=== PATIENT | female | born 1940 | race Caucasian/White ===

== ENCOUNTER 2018-01-08 15:55 | Emergency (ER) | payer MEDICARE, OTHER, SELFPAY ==
[2018-01-08 16:08] VITALS: BP 189/85; PULSE 72; RESP 18; TEMP 36.1; O2SAT 100; BMI 35.9
--- NOTE | 2018-01-08 16:58 | ED.EYEPROB ---
HPI - Eye Problem General Chief complaint: Eye Problems Stated complaint: SOMETHING WRONG WITH LEFT EYE SENT BY DOCTOR Time Seen by Provider: 01/08/18 16:35 Source: patient Mode of arrival: ambulatory Limitations: no limitations History of Present Illness HPI Narrative: Patient is a 77-year-old female presents with vision difficulties. She said last evening she started noticing some purple globs in her vision. She denies any blackening of vision or loss of vision. Someone was over at her house taking pictures she was not sure if there were her, while she could not see them and they are obviously were hooks. She was sent here for possible retinal detachment. She denies hay low around all any lights she denies double vision. chief complaint: vision change Related Data Home Medications Medication Instructions Recorded Confirmed CHOLECALCIFEROL (VITAMIN D3) 1,000 iu PO QDAY #0 01/21/10 (Vitamin D3) [CALCIUM CITRATE] PO BID #0 01/21/10 Allergies Allergy/AdvReac Type Severity Reaction Status Date / Time Diphenhydramine Allergy Unknown Uncoded 08/18/17 13:11 Penicillin Allergy Unknown Uncoded 08/18/17 13:11 SULFA (sulfonamide) Allergy Unknown Uncoded 08/18/17 13:11 Morphine AdvReac Unknown Uncoded 08/18/17 13:11 Review of Systems Review of Systems GENERAL: Denies chills,fever HEENT: See HPI RESPIRATORY: Denies dyspnea, cough, wheezing CARDIOVASCULAR: Denies chest pain, palpitations GASTROINTESTINAL: Denies nausea, vomiting MUSCULOSKELETAL: Denies extremity pain, injury SKIN: No rash, no laceration, no pruritus NEUROLOGIC: Denies weakness, dizziness, headache, numbness 8 point review of systems is negative except for those stated above and HPI PFSH Medical History Healthy adult (Acute) Social History Smoking Status: Former smoker Exam Initial Vital Signs Initial Vital Signs: Vital Signs Temperature 97.0 F L 01/08/18 16:08 Pulse Rate 72 01/08/18 16:08 Respiratory Rate 18 01/08/18 16:08 Blood Pressure 189/85 H 01/08/18 16:08 Pulse Oximetry 100 01/08/18 16:08 GENERAL: Well-appearing, well-nourished and in no acute distress. CARDIOVASCULAR: peripheral pulses in tact, cap refill <2 sec RESPIRATORY: No respiratory distress, speaks in full sentences without difficulty EXTREMITIES: Normal range of motion, no clubbing or edema. Neurovascularly intact NEUROLOGICAL: Cranial nerves II through XII grossly intact. Normal gait and speech. SKIN: Warm, dry, no petechiae, no rashes or lesions. Eyes General: appearance normal, both eyes and all related structures Visual Schaffer: normal visual schaffer by confrontation Alignment and Position: alignment normal Periorbital: periorbital findings normal Eyelids: eyelids normal Conjunctivae: conjunctivae normal Sclera: sclerae normal Cornea: corneas normal Pupils: PERRL EOM: EOM intact bilaterally Direct ophthalmoscopy: normal light reflex Other: Bedside ultrasound does not show any vitreous detachment or retinal detachment. Pressure in the right eye 26 mg of mercury, pressure in left eye 23 mg of Hg Course Vital Signs - 8 hr 01/08/18 16:08 Temperature 97.0 F L Pulse Rate 72 Respiratory Rate 18 Blood Pressure 189/85 H Pulse Oximetry 100 Discharge Plan Departure Patient Disposition: Home Clinical Impression: Vitreous floaters of right eye Discharge Date/Time: 01/08/18 17:29 Interventions: ED Discharge Assessment Last Done: 01/08/18 17:29 Instructions: DI for Eye Floaters Activity Restrictions/Additional Instructions: *You have been diagnosed with right eye floater *What to do: You still need an official Ophthalmology evaluation. However the emergency department does not find any acute retinal detachment. *Continue to take medications as directed *Follow up with your primary care provider in 2-3 days, call Ophthalmology Wednesday to schedule an appointment for next week *Return to ER if you should have decreasing vision, blackening of vision or any new, worsening or concerning symptoms Prescriptions: No Action CHOLECALCIFEROL (VITAMIN D3) (Vitamin D3) 1,000 iu PO QDAY Qty: 0 RF: 0 [CALCIUM CITRATE] PO BID Qty: 0 RF: 0 Referrals: Refugio Ruth MD [Physician] - Oscar Julian MD [Primary Care Provider] -
== END 2018-01-08 17:29 | disposition home or self-care (01) ==
PROVIDERS: Emergency Provider Emergency Medicine; PCP Family Medicine
DX: H43.391 Other vitreous opacities, right eye (principal)
CPT/HCPCS: 99282; 99283

== ENCOUNTER 2018-01-17 09:52 | Emergency (ER) | payer MEDICARE, OTHER, SELFPAY ==
[2018-01-17 10:08] VITALS: BP 178/92; PULSE 70; RESP 14; TEMP 36.6; O2SAT 98
--- NOTE | 2018-01-17 10:19 | ED_ITS ---
HPI - Eye Problem General Chief complaint: Eye Problems Stated complaint: states trouble seeing from right eye Time Seen by Provider: 01/17/18 10:10 Source: patient Mode of arrival: ambulatory Limitations: no limitations History of Present Illness HPI Narrative: Patient is a 77-year-old female who was sent here from the MRI clinic. Report was the patient was seen here in the emergency department several weeks ago for decreased vision right eye. She was seen by Ophthalmology last Wednesday. An order was placed for a MRI with and without contrast and also carotid Dopplers and labs. The patient arrived today to the MRI clinic to have her MRI taken and they told her that they did not have any appointments in the next appointment was on Wednesday. She states she was told to come to the emergency department by the debug technician so that ?we could handle it ?. Patient states that her right eye symptoms are no different than which she had on Wednesday. Related Data Home Medications Medication Instructions Recorded Confirmed [CALCIUM CITRATE] 1 tab PO DAILY #0 01/21/10 01/17/18 Fish Oil 1 cap PO BID 01/17/18 01/17/18 Vitamin C 1 tab PO DAILY 01/17/18 01/17/18 aspirin 81 mg PO DAILY 01/17/18 01/17/18 simvastatin 1 tab PO DAILY 01/17/18 01/17/18 Allergies Allergy/AdvReac Type Severity Reaction Status Date / Time Diphenhydramine Allergy Unknown Uncoded 08/18/17 13:11 Penicillin Allergy Unknown Uncoded 08/18/17 13:11 SULFA (sulfonamide) Allergy Unknown Uncoded 08/18/17 13:11 Morphine AdvReac Unknown Uncoded 08/18/17 13:11 Review of Systems Constitutional Denies fever(s) Eyes Comments: Decreased vision right eye Integumentary/Breasts Denies rash Hematologic/Lymphatic Denies easy bleeding [facility] Medical History Multiple sclerosis (Acute) Healthy adult (Acute) Surgical History No pertinent past surgical history (Acute) Social History Smoking Status: Former smoker Exam Initial Vital Signs Initial Vital Signs: Vital Signs Temperature 98 F 01/17/18 10:08 Pulse Rate 70 01/17/18 10:08 Respiratory Rate 14 01/17/18 10:08 Blood Pressure 178/92 H 01/17/18 10:08 Pulse Oximetry 98 01/17/18 10:08 Const General: cooperative, healthy appearing, comfortable and well developed Resp Effort & Inspection: normal respiratory effort Skin Lesions: no lesions Rashes: no rashes Neuro General: alert, awake and oriented x3 Cognition: normal cognition Speech: speech normal Gait: normal gait Extrem General: normal to inspection Psych Appearance: grossly normal and well kempt Course Orders Ordered: ED Orders 01/17/18 11:20 BUN Creatinine w/ eGFR & Ratio Stat Hemoglobin A1C % Stat Vital Signs - 8 hr 01/17/18 10:08 Temperature 98 F Pulse Rate 70 Respiratory Rate 14 Blood Pressure 178/92 H Pulse Oximetry 98 MDM - Eye Problem Lab Data Result diagrams: 01/17/18 11:20 Lab Results 01/17/18 01/17/18 Range/Units 11:20 11:20 BUN 25 H (7-17) mg/dL Creatinine 1.10 H (0.52-1.04) mg/dL Estimated GFR 48.0 L (>60) mL/min BUN/Creatinine Ratio 22.7 H (6-22) Hemoglobin A1c 6.3 H (4.0-6.0) % MDM Narrative Medical decision making narrative: No labs were ordered for her here in the emergency department. She states she has no change from her vision from last Wednesday. She does have the paperwork with her showing that a MRI with her without contrast and also carotid Dopplers were ordered. I discussed the case with Dr. Ruth with Ophthalmology who was not the 1 who evaluated the patient but stated that his your operative provider would be in the Ophthalmology Clinic at 1230 today. Informed the patient that she needed to follow up with the Ophthalmology Clinic at 1230 and if that provider felt that she needed an MRI sooner than Wednesday that he could arrange for this to happen. Patient expressed understanding and agreement with plan. Discharge Plan Departure Patient Disposition: Home Clinical Impression: Change in vision Discharge Date/Time: 01/17/18 11:13 Interventions: ED Discharge Assessment Last Done: 01/17/18 11:11 Instructions: DI for Visual Field Disturbances Activity Restrictions/Additional Instructions: Return to the ophthalmology department here at [facility] at 1230 today to talk with your enterprise resource planning consultant about the scheduling of the MRI and the ultrasound. Go to the laboratory after being discharged from the emergency department to get your blood drawn. Return to the emergency department for any new symptoms. Prescriptions: No Action [CALCIUM CITRATE] 1 tab PO DAILY Qty: 0 RF: 0 aspirin 81 mg Tablet,Delayed Release (Dr/Ec) 81 mg PO DAILY RF: 0 simvastatin 40 mg Tablet 1 tab PO DAILY RF: 0 Fish Oil 1 cap PO BID RF: 0 Vitamin C 1 tab PO DAILY RF: 0
[2018-01-17 11:11] VITALS: BP 168/90; PULSE 78; RESP 14; O2SAT 99
[2018-01-17 13:33] LABS: BUN Creatinine Ratio 22.7 (6-22); Blood Urea Nitrogen 25 mg/dL (7-17)
[2018-01-17 13:38] LABS: Hemoglobin A1C% w Est Avg Glu 6.3 % (4.0-6.0)
== END 2018-01-17 11:13 | disposition home or self-care (01) ==
PROVIDERS: Emergency Provider Emergency Medicine; Family Provider Family Medicine; PCP Family Medicine
DX: H53.9 Unspecified visual disturbance (principal)
CPT/HCPCS: 36415; 70543; 82565; 83036; 84520; 85025; 85651; 86140; 99281; 99283; 99285; A9579

== ENCOUNTER → 2018-01-17 11:13 | Outpatient (CLI) | payer MEDICARE, OTHER, SELFPAY ==
[2018-01-17 11:51] LABS: Add Manual Diff / Slide Review NO; Basophils Percent Auto 1.2 % (0-2); Eosinophils Percent Auto 3.4 % (2-4); Hematocrit 40.9 % (36-46); Lymphocytes Percent Auto 24.9 % (25-40); Mean Corpuscular HGB Conc 34.2 % (30-36); Mean Corpuscular Hemoglobin 30.5 PG (26-34); Mean Corpuscular Volume 89.2 fL (80-100); Neutrophils Absolute Auto 3900 /uL (3000-5900); Neutrophils Percent Auto 61.5 % (50-75); Platelet Count 211 X10^3/uL (150-400); Red Blood Cell Count 4.58 X10^6/uL (4.0-5.2); Red Cell Distribution Width 12.9 % (11.6-14.8); White Blood Cell Count 6.3 X10^3/uL (4.5-11.0)
[2018-01-17 12:23] LABS: Erythrocyte Sedimentation Rate 21 MM/HR (0-20)
[2018-01-17 12:24] LABS: C-Reactive Protein Quant < 0.5 mg/dL (<1.0)
== END ==
PROVIDERS: PCP Family Medicine; Visit Provider Ophthalmology
DX: H34.211 Partial retinal artery occlusion, right eye (principal)
CPT/HCPCS: 36415; 85025; 85651; 86140

== ENCOUNTER → 2018-01-17 13:04 | Outpatient (CLI) | payer MEDICARE, OTHER, SELFPAY | PROVIDERS: Family Provider Family Medicine; PCP Family Medicine; Visit Provider Ophthalmology | DX: G35 Multiple sclerosis (principal) ==

== ENCOUNTER → 2018-01-17 13:13 | Outpatient (CLI) | payer MEDICARE, OTHER, SELFPAY ==
--- NOTE | 2018-01-17 | DI.MRI.S_ITS ---
PROCEDURE: MR ORBITS FACE NECK WO/W CON INDICATIONS: MULTIPLE SCLEROSIS TECHNIQUE: Noncontrast sagittal T1 spin echo, axial FLAIR, axial gradient echo, axial diffusion and ADC acquired through the brain. Coronal STIR, thin-slice axial T1 spin echo through the orbits. After the administration of contrast, thin-slice axial and coronal T1 spin echo with fat saturation through the orbits, axial T1 spin echo with fat saturation through the brain. COMPARISON: None. FINDINGS: Image quality: Excellent. Orbits: Globes are symmetrical. The optic nerves are normal in size, without abnormal signal or enhancement. No retrobulbar masses or fat abnormalities. The extra-ocular muscles are normal and symmetric in appearance. Lacrimal glands are normal. Optic chiasm is normal. Periorbital soft tissues appear normal. CSF spaces: Ventricles are normal in size and shape. Basal cisterns are patent. No extra-axial fluid collections. Brain: No intracranial bleeds or mass effects. No abnormal intracranial enhancement. Rivas-white matter interface is intact. Pituitary gland appears normal, without sellar or suprasellar masses. Brainstem appears normal. Normal intravascular flow voids are present. On one image, there is a focus of increased diffusion weighted signal seen within the superior left frontal lobe posteriorly, as on series 7 image 64. On the associated ADC maps, there is potentially decreased signal seen at this same site. No associated flow signal or enhancement can be seen. Skull and face: Calvarial marrow is normal in signal. Sinuses: Sinuses and mastoids are clear. IMPRESSION: No significant white matter lesions are seen characteristic for multiple sclerosis. Normal appearing orbits. Note is made of age-appropriate brain parenchymal volume loss and chronic small vessel ischemic changes. On one image there is a focus of potential acute ischemia within the superior posterior left frontal lobe. However, this is felt more likely to be artifactual in nature. Please correlate with patient history. Dictated by: Ivan Issa M.D. on 01/17/2018 at 14:50 Approved by: Ivan Issa M.D. on 01/17/2018 at 14:56
== END ==
PROVIDERS: Family Provider Family Medicine; PCP Family Medicine; Visit Provider Ophthalmology
DX: G35 Multiple sclerosis (principal); H34.211 Partial retinal artery occlusion, right eye; H53.131 Sudden visual loss, right eye
CPT/HCPCS: 70543; A9579

== ENCOUNTER → 2018-01-27 13:45 | Outpatient (CLI) | payer MEDICARE, OTHER, SELFPAY ==
--- NOTE | 2018-01-27 | DI.US.S_ITS ---
PROCEDURE: US CAROTID DOPPLER BI INDICATIONS: Partial retinal artery occlusion, right eye TECHNIQUE: Color and pulse Doppler interrogation was performed of both carotid systems, with image documentation and velocity measurements. COMPARISON: None. FINDINGS: Stenosis calculations are based on SRU (Society of Radiologists in Ultrasound) criteria. Right side: Brachial blood pressure: 149/91 mm Hg. Common carotid artery peak systolic velocity: 96 cm/sec. Internal carotid artery peak systolic velocity: 99 cm/sec. Internal carotid artery end diastolic velocity: 16 cm/sec. External carotid artery peak systolic velocity: 89 cm/sec. ICA/CCA peak systolic ratio: 1.04 . Rivas scale imaging description: Mild plaque at the bifurcation. Percent internal carotid artery stenosis: Less than 50%. Vertebral artery: Flow direction is antegrade. Left side: Brachial blood pressure: 162/73 mm Hg. Common carotid artery peak systolic velocity: 97 cm/sec. Internal carotid artery peak systolic velocity: 109 cm/sec. Internal carotid artery end diastolic velocity: 30 cm/sec. External carotid artery peak systolic velocity: 188 cm/sec. ICA/CCA peak systolic ratio: 1.12. Rivas scale imaging description: Mild to moderate plaque at the bifurcation Percent internal carotid artery stenosis: Less than 50%. Vertebral artery: Flow direction is antegrade. IMPRESSION: Less than 50% stenosis of the internal carotid arteries bilaterally. Dictated by: Mary Robison M.D. on 01/27/2018 at 17:03 Approved by: Mary Robison M.D. on 01/27/2018 at 17:04
== END ==
PROVIDERS: Family Provider Family Medicine; PCP Family Medicine; Visit Provider Ophthalmology
DX: H34.211 Partial retinal artery occlusion, right eye (principal); I65.23 Occlusion and stenosis of bilateral carotid arteries
CPT/HCPCS: 93880

== ENCOUNTER → 2018-02-21 10:48 | Outpatient (CLI) | payer MEDICARE, OTHER, SELFPAY ==
--- NOTE | 2018-02-21 | DI.ECHO.S_ITS ---
[place] +---------+ [facility] +---------+ : : [address] : : : : [id number] : : : : Phone: [phone] Echocardiogram Report + + :Name: SHERRI IBARRA Study Date: 02/21/2018 Height: 63 in : :[facility] Exam Location: [facility] Weight: 198 lb : : Gender: Female BSA: 1.9 m2 : :: 1940 Age: 78 yrs BP: 182/80 mmHg: :Reason For Study: RETINAL ARTERY OCCLUSION : : Performed By: Tosin Tsai : :Referring: LIDIA WRIGHT : + + Interpretation Summary Normal sinus rhythm. Normal LV size, proximal septal thickening, normal wall motion and left ventricular systolic function. Ejection fraction is estimated at 75-80 percent. stage I diastolic dysfunction. Aortic valve is sclerotic. Aortic valve leaflets are not well-seen. Based on color flow Doppler, there is no significant aortic stenosis. There is some concern for mild mid left ventricular outflow tract obstruction with peak gradient of 32 mm Hg with Valsalva maneuver and 19 mmHg at rest . It does not appear to be hemodynamically significant. Mitral valve leaflets are normal. There is moderate mitral annular calcification without associated significant regurgitation or stenosis. No prior study available for comparison. Procedure: A two-dimensional transthoracic echocardiogram with color flow and Doppler was performed. The study quality was technically adequate. There is no prior echocardiogram noted for this patient. The patient was in normal sinus rhythm during the exam. Left Ventricle: There is mild proximal septal thickening noted. The left ventricle is normal in size. Mid LV gradient measuring 2.2m/sec and 19mmHg at rest and increasing to 2.8m/sec and 32 mmHg with valsalva. The left ventricle is hyperdynamic. The ejection fraction is estimated to be 75-80%. There are no focal wall motion abnormalities. Diastolic parameters suggest a relaxation abnormality of the left ventricle, consistent with probable normal filling pressures. Right Ventricle: The right ventricle is normal in size and function. Atria: The left atrium is mildly dilated. Right atrial size is normal. There is no Doppler evidence for an interatrial shunt. Mitral Valve: The mitral valve leaflets appear mildly thickened, but open well. There is mild mitral annular calcification. There is trace mitral regurgitation. Aortic Valve: The aortic valve is trileaflet. There is mild aortic valve sclerosis. No aortic regurgitation is present. Tricuspid Valve: The tricuspid valve is normal. There is trace tricuspid regurgitation. The right ventricular systolic pressure is estimated to be at least 28 mmHg based on an estimated right atrial pressure of 3 mm Hg. Pulmonic Valve: The pulmonic valve is not well visualized. There is a trace or physiologic amount of pulmonic regurgitation. Great Vessels: The aortic root is normal size. The ascending aorta is normal in size. The aortic arch is normal in size. The pulmonary is not well visualized. The IVC is of normal diameter and collapses greater than 50% with a sniff. This suggests a low right atrial pressure of 3 mm Hg. Pericardium/ Pleura There is no pericardial effusion. There is no pleural effusion. MMode/2D Measurements & Calculations LVIDd: 4.1 cm LVOT diam: 2.2 cm LVIDs: 2.2 cm Ao root diam: 3.6 cm FS: 47.3 % asc Aorta Diam: 3.1 cm EPSS: 0.68 cm Ao Arch Diam (Prox Trans): 2.9 cm IVSd: 1.1 cm LVPWd: 0.86 cm LV owen. diameter/BSA (cm/m^2): 2.1 LV sys. diameter/BSA (cm/m^2): 1.1 LA A2 area: 26.8 cm2 RA long axis: 4.9 cm LA A4 area: 21.3 cm2 RA area: 16.2 cm2 LA length (vol): 6.2 cm RA vol: 45.4 ml LA vol: 77.7 ml RA : 23.6 ml/m2 LA vol index: 40.3 ml/m2 IVC diam: 0.97 cm RVD1 (basal): 3.7 cm RVD2 (mid): 2.4 cm TAPSE: 2.3 cm Doppler Measurements & Calculations Ao V2 max: 197.6 cm/sec LVOT Max Oswaldo: 111.9 cm/sec Ao V2 mean: 135.6 cm/sec LV V1 max P.0 mmHg Ao max P.6 mmHg LV V1 VTI: 25.2 cm Ao mean P.6 mmHg MADINA(I,D): 2.8 cm2 Ao V2 VTI: 36.1 cm MADINA(V,D): 2.2 cm2 sev ratio: 0.70 MADINA indexed to BSA (cm^2/m^2): 1.4 MV E max oswaldo: 70.2 cm/sec TR max oswaldo: 247.9 cm/sec MV A max oswaldo: 135.1 cm/sec TR max P.6 mmHg MV E/A: 0.52 PA V2 max: 98.7 cm/sec Med Peak E' Oswaldo: 4.8 cm/sec PA V2 mean: 62.7 cm/sec E/E' med: 14.5 PA mean P.9 mmHg Lat Peak E' Oswaldo: 6.4 cm/sec PA pr(Accel): 60.7 mmHg E/E' lat: 10.9 E/e' average: 12.7 MV dec time: 0.31 sec MV P1/2t: 91.4 msec MVA(VTI): 3.1 cm2 MV V2 mean: 68.3 cm/sec MV P1/2t max oswaldo: 71.0 cm/sec MV mean P.1 mmHg MVA(P1/2t): 2.4 cm2 MV V2 VTI: 32.6 cm Reading Physician:07:11 PM
== END ==
PROVIDERS: PCP Family Medicine; Visit Provider Ophthalmology
DX: I35.8 Other nonrheumatic aortic valve disorders (principal); H34.9 Unspecified retinal vascular occlusion
CPT/HCPCS: 93306

== ENCOUNTER 2018-06-16 10:31 | Day surgery (SDC) | payer MEDICARE, OTHER, SELFPAY ==
[2018-06-16] MEDS: PROPARACAINE 0.5% OPHTH SOL 2 DROPS EYE-OP (11:01)
[2018-06-16] MEDS: CATARACT EYE COMPOUND (10 DROPS/SYRINGE) 3 DROPS EYE-OP (11:06)
[2018-06-16 11:07] VITALS: BMI 34.0
[2018-06-16 11:21] VITALS: BP 144/68; PULSE 71; RESP 12; TEMP 36.6; O2SAT 93
[2018-06-16 11:22] VITALS: O2SAT 97
--- NOTE | 2018-06-16 12:17 | PM.PREOP ---
Pre-operative Note Interval Note History & Physical reviewed/Exam performed by Physician: Yes Changes to H&P: No
[2018-06-16] MEDS: LIDOCAINE JELLY 2% 5 ML 1 APPLIC TOP (12:47)
[2018-06-16] MEDS: MOXIFLOXACIN OPHTH DROPS 3 ML BOTTLE 2 DROPS INJ (12:47)
[2018-06-16] MEDS: CHONDROIDTIN/SOD HYALURONATE 1.05 ML SYRINGE INTRAOCULA ×2 (12:47→13:00)
[2018-06-16] MEDS: PHENYLEPHRINE/LIDOCAINE VIAL (OR) 0.2 ML EYE-OP (12:47)
[2018-06-16] MEDS: BALANCED SALT IRRIG SOLN NO.2 500 ML, EPINEPHrine 1 MG IRR (12:48)
--- NOTE | 2018-06-16 14:34 | PM.OP.1 ---
Procedure & Clinicians Procedure: cataract surgery with intraocular lens implant, right Same procedure as scheduled: Yes Indications: Visually significant nuclear sclerosis cataract, right Surgeon: Roldan Stewart Click Yes if Unassisted: Yes Anesthesia Type: MAC +/- Operative Notes Procedure in detail: The patient was brought to the operating suite. The correct patient, surgical site and lens were confirmed. 0.5 % tetracaine drops were placed in the right eye. The patient was prepped and draped in the typical sterile manner. A lid speculum was placed in the eye. 2% lidocaine was placed on the eye. A paracentesis port was created with a side-port blade at 5 o'clock. 0.1 mL of 1% preservative free lidocaine with phenylephrine was injected into the anterior chamber. Viscoelastic was injected into the anterior chamber. A 2.6mm keratome was used to create a clear corneal temporal incision. Cystotome and Utrata forceps were used to start a continuous curvilinear capsulorrhexis. At the 9 o'clock position the capsulorrhexis ran out. At this point the iris was noted to be protruding through the main incision. A 6.25mm Malyugin ring was placed. This was found to be too small and was removed. Than a 7 mm Malyugin ring was placed. A can patient support assistant technique was used to complete the capsulorrhexis. Balanced salt solution was used to gently hydrodissect the nucleus. Phacoemulsification was used to remove the lens. Inspiration/Aspiration was used to gently remove residual cortical material and to german the bag. The posterior capsular bag was noted to be intact. The capsular bag was inflated with viscoelastic. Given the large capsulorrhexis an Gomez +24.0D lens was placed in the bag and positioned well. The malyugin ring was removed and viscoelastic was removed. The iris was again found to be protruding from the wound. Three 10-0 sutures were placed at the wound and one 10-0 suture at the paracentesis port. All these knots were burried. A second paracentesis port was created at 1 o'clock. A BSS cannula was used to sweep the iris out of the wound. The wounds were found to be leak free and the eye was at physiologic pressure. 0.1mL Vigamox was injected into the anterior chamber. The lid speculum was removed and the patient left the operating room in excellent condition. Complications: none Condition: stable Disposition: same day surgery
[2018-06-16 14:41] VITALS: BP 162/68; PULSE 68; RESP 16; TEMP 36.3; O2SAT 99
--- NOTE | 2018-06-16 14:44 | P.OP_ITS ---
Procedure & Clinicians Procedure: cataract surgery with intraocular lens implant, right Same procedure as scheduled: Yes Indications: Visually significant nuclear sclerosis cataract, right Surgeon: Roldan Stewart Click Yes if Unassisted: Yes Anesthesia Type: MAC +/- Operative Notes Procedure in detail: The patient was brought to the operating suite. The correct patient, surgical site and lens were confirmed. 0.5 % tetracaine drops were placed in the right eye. The patient was prepped and draped in the typical sterile manner. A lid speculum was placed in the eye. 2% lidocaine was placed on the eye. A paracentesis port was created with a side-port blade at 5 o'clock. 0.1 mL of 1% preservative free lidocaine with phenylephrine was injected into the anterior chamber. Viscoelastic was injected into the anterior chamber. A 2.6mm keratome was used to create a clear corneal temporal incision. Cystotome and Utrata forceps were used to start a continuous curvilinear capsulorrhexis. At the 9 o'clock position the capsulorrhexis ran out. At this point the iris was noted to be protruding through the main incision. A 6.25mm Malyugin ring was placed. This was found to be too small and was removed. Than a 7 mm Malyugin ring was placed. A can drag out worker technique was used to complete the capsulorrhexis. Balanced salt solution was used to gently hydrodissect the nucleus. Phacoemulsification was used to remove the lens. Inspiration/Aspiration was used to gently remove residual cortical material and to tamazight the bag. The posterior capsular bag was noted to be intact. The capsular bag was inflated with viscoelastic. Given the large capsulorrhexis an Gomez +24.0D lens was placed in the bag and positioned well. The malyugin ring was removed and viscoelastic was removed. The iris was again found to be protruding from the wound. Three 10-0 sutures were placed at the wound and one 10-0 suture at the paracentesis port. All these knots were burried. A second paracentesis port was created at 1 o'clock. A BSS cannula was used to sweep the iris out of the wound. The wounds were found to be leak free and the eye was at physiologic pressure. 0.1mL Vigamox was injected into the anterior chamber. The lid speculum was removed and the patient left the operating room in excellent condition. Complications: none Condition: stable Disposition: same day surgery
== END 2018-06-16 14:46 ==
LOC: OR 10:31
PROVIDERS: PCP Family Medicine; Visit Provider Ophthalmology
PROC: (CPT 66982; principal; 2018-06-16 11:30)
DX: H25.11 Age-related nuclear cataract, right eye (principal)
CPT/HCPCS: 66982; J0171; J2250; J3010

== ENCOUNTER 2018-06-23 14:15 | Day surgery (SDC) | payer MEDICARE, OTHER, SELFPAY ==
[2018-06-23] VITALS (7 sets, daily range): BP systolic 146–179; BP diastolic 55–77; PULSE 60–68; RESP 10–16; TEMP 36.2–36.3; O2SAT 96–99; BMI 35.4
[2018-06-23] MEDS: PROPARACAINE 0.5% OPHTH SOL 2 DROPS EYE-OP ×2 (16:00→16:01)
[2018-06-23] MEDS: CATARACT EYE COMPOUND (10 DROPS/SYRINGE) 3 DROPS EYE-OP (16:02)
--- NOTE | 2018-06-23 16:33 | PM.PREOP ---
Pre-operative Note Interval Note History & Physical reviewed/Exam performed by Physician: Yes Changes to H&P: No
[2018-06-23] MEDS: PHENYLEPHRINE/LIDOCAINE VIAL (OR) 0.2 ML EYE-OP ×2 (17:15→17:22)
[2018-06-23] MEDS: MOXIFLOXACIN OPHTH DROPS 3 ML BOTTLE 2 DROPS INJ ×2 (17:15→17:22)
[2018-06-23] MEDS: CHONDROIDTIN/SOD HYALURONATE 1.05 ML SYRINGE INTRAOCULA ×2 (17:16→17:17)
[2018-06-23] MEDS: TETRACAINE 0.5% OPHTH DROPS 4 ML 2 DROPS EYE-RIGHT (17:18)
[2018-06-23] MEDS: BALANCED SALT IRRIG SOLN NO.2 500 ML, EPINEPHrine 1 MG IRR ×2 (17:18→17:23)
[2018-06-23] MEDS: ACETYLCHOLINE 1:1000 OPHTH 2 ML 1 DROP INTRAOCULA (17:19)
[2018-06-23] MEDS: CARBACHOL 1.5 ML VIAL INJ (17:55)
[2018-06-23] MEDS: TRIAMCINOLONE 50 MG/5 ML VIAL INJ (18:25)
[2018-06-23] MEDS: ERYTHROMYCIN OPHTH 1 GM OINT 1 APPLIC EYE-RIGHT (18:37)
--- NOTE | 2018-06-23 18:45 | PM.OP.1 ---
Procedure & Clinicians Procedure: Lens exchange, wound revision, right Same procedure as scheduled: Yes Indications: Dislocated lens, iris in wound, right Surgeon: Roldan Stewart Click Yes if Unassisted: Yes Anesthesia Type: General Operative Notes Procedure in detail: The patient was brought to the operating suite. The correct patient, surgical site and lens were confirmed. 0.5 % tetracaine drops were placed in the right eye. The patient was prepped and draped in the typical sterile manner. A lid speculum was placed in the eye. 2% lidocaine was placed on the eye. A paracentesis port was created with a side-port blade at 2 o'clock. 0.1 mL of 1% preservative free lidocaine with pheynylephrine was injected into the anterior chamber. Viscoelastic was injected into the anterior chamber. A 2.6mm keratome was used to create a clear corneal incision at 12 o'clock. The eye was inspected and there was found to be a rent at 3 o'clock with a posterior capsule extension. The existing lens was rotated out of the bag into the anterior chamber. The lens was cut into three pieces and removed with MST graspers and lens cutters. All three pieces were removed from the eye. A Gomez [id number] +22.5 D lens was placed in the sulcus with the haptics oriented at 6 and 12 o'clock. Myostat at Miochiol-E were placed in the anterior chamber. The lens appeared stable. The iris was swept from the main wound at 9 o'clock. Irrigation/aspiration were used to remove Viscoelastic. A vitrectomy was used to sweep the anterior chamber. The main wound at 12 o'clock was sutured with 10-0 nylon and the knot burried. 0.1mL Vigamox was injected into the anterior chamber. A small amount of vitreous was appreciated at the sideport wound. A Weck-cell vitrectomy was performed with Jules scissors. The wound and sideport incision were found to be leak free and the eye was assessed to be at normal physiologic pressure. The wound and sideport incision were inspected again with a weck-giovanna and no vitreous was appreciated. 20mg of Kenalog-40 was injected inferiorly into the subtenon space. The lid speculum was removed and the patient left the operating room in excellent condition. Complications: none Condition: stable Disposition: same day surgery
[2018-06-23] MEDS: acetaZOLAMIDE 250 MG TABLET 1000 MG PO (18:56)
--- NOTE | 2018-06-23 19:23 | SUR.PHASEII ---
Some light shivering here in OPD albeit starting after IV discontinued. Expedited dressing in street clothes to help with warmth.
== END 2018-06-23 19:43 | disposition home or self-care (01) ==
PROVIDERS: PCP Family Medicine; Visit Provider Ophthalmology
PROC: (CPT 66825; principal; 2018-06-23 15:30)
DX: T85.22XA Displacement of intraocular lens, initial encounter (principal)
CPT/HCPCS: 66825; J0171; J2704; J3010; J3300; J3301

== ENCOUNTER 2018-07-28 14:26 | Day surgery (SDC) | payer MEDICARE, OTHER, SELFPAY ==
[2018-07-28] MEDS: PROPARACAINE 0.5% OPHTH SOL 2 DROPS EYE-OP (14:52)
[2018-07-28 14:56] VITALS: BMI 35.4
[2018-07-28] MEDS: CATARACT EYE COMPOUND (10 DROPS/SYRINGE) 3 DROPS EYE-OP (15:02)
[2018-07-28 15:03] VITALS: BP 155/76; PULSE 85; RESP 12; TEMP 36.6; O2SAT 96
--- NOTE | 2018-07-28 15:07 | PM.PREOP ---
Pre-operative Note Interval Note History & Physical reviewed/Exam performed by Physician: Yes Changes to H&P: No
[2018-07-28] MEDS: PHENYLEPHRINE/LIDOCAINE VIAL (OR) 0.2 ML EYE-OP (15:34)
[2018-07-28] MEDS: CHONDROIDTIN/SOD HYALURONATE 1.05 ML SYRINGE INTRAOCULA (15:35)
[2018-07-28] MEDS: BALANCED SALT IRRIG SOLN NO.2 15 ML IRR (15:35)
[2018-07-28] MEDS: TRYPAN BLUE 0.5 ML SYRINGE INJ (15:35)
[2018-07-28] MEDS: BALANCED SALT IRRIG SOLN NO.2 500 ML, EPINEPHrine 1 MG IRR (15:36)
[2018-07-28] MEDS: TETRACAINE 0.5% OPHTH DROPS 4 ML 2 DROPS EYE-LEFT (15:36)
[2018-07-28] MEDS: MOXIFLOXACIN OPHTH DROPS 3 ML BOTTLE 2 DROPS INJ (15:37)
--- NOTE | 2018-07-28 15:55 | PM.OP.1 ---
Procedure & Clinicians Procedure: Cataract extraction with intraocular lens implant, left Same procedure as scheduled: Yes Indications: Visually significant cataract, left Surgeon: Roldan Stewart Click Yes if Unassisted: Yes Anesthesia Type: MAC +/- Operative Notes Procedure in detail: The patient was brought to the operating suite. The correct patient, surgical site and lens were confirmed. 0.5 % tetracaine drops were placed in the left eye. The patient was prepped and draped in the typical sterile manner. A lid speculum was placed in the eye. 2% lidocaine was placed on the eye. A paracentesis port was created with a side-port blade. 0.1 mL of 1% preservative free lidocaine with phenylephrine was injected into the anterior chamber. Viscoelastic was injected into the anterior chamber. A 2.6mm keratome was used to create a clear corneal temporal incision. Cystotome and Utrata forceps were used to create a continuous curvilinear capsulorrhexis. Balanced salt solution was used to hydrodissect the nucleus. Phacoemulsification was used to remove the lens. The capsular bag was inflated with viscoelastic. A Gomez ZBOO +23.5D lens was inserted into the capsule. Viscoelastic was removed and the wound hydrated. The wound was found to be leak free and the eye was assessed to be at normal physiologic pressure. 0.1mL Vigamox was injected into the anterior chamber. The lid speculum was removed and the patient left the operating room in excellent condition. Complications: none Condition: stable Disposition: same day surgery
[2018-07-28 15:58] VITALS: BP 148/65; PULSE 65; RESP 16; TEMP 36.4; O2SAT 99
== END 2018-07-28 17:00 | disposition home or self-care (01) ==
LOC: OR 14:27
PROVIDERS: PCP Family Medicine; Visit Provider Ophthalmology
DX: H26.8 Other specified cataract (principal)
CPT/HCPCS: J0171; J2250; J3010

== ENCOUNTER 2019-06-16 14:04 | Emergency (ER) | payer MEDICARE, OTHER, SELFPAY ==
[2019-06-16 14:25] VITALS: BP 129/66; PULSE 78; RESP 18; TEMP 36.8; O2SAT 97; BMI 32.7
[2019-06-16 15:10] LABS: Add Manual Diff / Slide Review NO; Basophils Absolute Auto 100 /uL (0-100); Basophils Percent Auto 0.7 % (0-2); Eosinophils Absolute Auto 200 /uL (0-450); Eosinophils Percent Auto 1.8 % (2-4); Hematocrit 40.2 % (36-46); Hemoglobin 13.9 g/dL (12.0-16.0); Lymphocytes Absolute Auto 1300 /uL (1100-4500); Lymphocytes Percent Auto 14.8 % (25-40); Mean Corpuscular HGB Conc 34.4 % (30-36); Mean Corpuscular Hemoglobin 30.7 PG (26-34); Mean Corpuscular Volume 89.1 fL (80-100); Monocytes Absolute Auto 900 /uL (0-900); Monocytes Percent Auto 9.8 % (3-14); Neutrophils Absolute Auto 6500 /uL (1500-7000); Neutrophils Percent Auto 72.9 % (50-75); Platelet Count 202 X10^3/uL (150-400); Red Blood Cell Count 4.52 X10^6/uL (4.0-5.2); Red Cell Distribution Width 13.1 % (11.6-14.8); White Blood Cell Count 8.9 X10^3/uL (4.5-11.0)
--- NOTE | 2019-06-16 15:16 | ED_ITS ---
HPI - Fall General Chief Complaint: Fall Stated Complaint: passed out in bathroom Time Seen by Provider: 06/16/19 15:03 Source: patient Mode of arrival: Wheelchair Limitations: no limitations History of Present Illness HPI Narrative: This is an 79-year-old female comes to the emergency department with complaint of passing out her bathroom. She states about 3:30 this morning she was up she had been sleeping she was up very early got hot shower she felt lightheaded set down in the shower and then felt she needed to get out so she went to go and sit on the toilet she made it to the toilet sat down and then woke up on the floor. She thinks only a few minutes past. She states there was some blood from her nose present. She did have much energy but after appear to time she was able to get, cleaned up herself, change of clothes clean the bathroom, clean heard tells but was not able to clean a small crevice between the floor and the bathtub because she had difficulty. She contacted the local medics on [facility]. They checked her out they took her to primary care doctor who sewed a laceration on her finger and her nose but they felt she needed evaluation. Patient denies any headache, she denies any neck or back pain. She denies any dizziness currently no nausea, no vomiting, no loss of bowel or bladder control. No weakness, numbness or tingling. She normally takes aspirin she stopped it on Wednesday in anticipation of having hip repair this following Wednesday. She does take simvastatin and Celebrex. She does have a difference in the size of her pupils which she states is chronic and secondary to change in 1 of her eyes. She does not know if her tetanus is up-to-date. With a assistance with medics she was brought over here for evaluation. Related Data Home Medications Medication Instructions Recorded Confirmed calcium carbonate [Calcium 500] 1,500 mg PO DAILY #0 01/21/10 07/28/18 ascorbic acid (vitamin C) [Vitamin 1,000 mg PO DAILY 01/17/18 07/28/18 C] aspirin 81 mg PO DAILY 01/17/18 07/28/18 omega 7-wub-bun-fish oil [Fish Oil] 1 tab PO BID 01/17/18 07/28/18 simvastatin 1 tab PO DAILY 01/17/18 06/16/19 cholecalciferol (vitamin D3) 1,000 unit PO DAILY 06/16/18 07/28/18 [Vitamin D3] naproxen sodium [Aleve] 440 mg PO BID PRN 06/16/18 07/28/18 celecoxib 200 mg PO DAILY 06/16/19 latanoprost 1 drp OPHTHALMIC (EYE) DAILY 06/16/19 06/16/19 Previous Rx's Medication Instructions Recorded clindamycin HCl 300 mg PO Q6H 5 Days #20 cap 06/16/19 Allergies Allergy/AdvReac Type Severity Reaction Status Date / Time Penicillins Allergy Intermediate Hives Verified 07/28/18 13:32 adhesive Allergy Unknown Rash Verified 07/28/18 13:32 Sulfa (Sulfonamide Allergy Unknown Hives Verified 07/28/18 13:32 Antibiotics) morphine AdvReac Severe Vomiting Verified 07/28/18 13:32 Review of Systems Review of Systems ROS Unobtainable: All systems reviewed & are unremarkable except as noted in HPI and below Patient History Medical History (Updated 06/16/19 @ 16:32 by Concha Randall DO) Dyslipidemia (Acute) Healthy adult (Acute) Multiple sclerosis (Acute) Surgical History No pertinent past surgical history (Acute) Social History household members: spouse Smoking Status: Former smoker Smoking Status: Former smoker alcohol intake frequency: 0-2 drinks per day Substance Use Type: does not use Exam Narrative Exam Narrative: GEN: Patient appears in mild distress. HEAD: No evidence of trauma, no raccoon/Campbell sign. NECK: Nontender, painless range of motion, trachea midline Negative Nexus criteria, there is no mid line tenderness, distracting injury, altered mental status, neuro deficit, recent EtOH. EYES: Patient have aniscoria with 6mm pupil in the right and 2 mm on the left, RRLA, EOMI ENT: Patient does have a laceration over the bridge of the nose, approximately 3.2 cm in length but has been repaired with good closure so, patient does have some ecchymosis around the area, no raccoon eyes, trachea is midline, TM's are normal no hemotypanum, Nares are clear, no septal hematoma, no dental or oral injury, airway is normal and with normal occlusion, No bony tenderness RESP: Chest is nontender and has symmetric movement, no ecchymosis, breath s ounds are normal no crackles, wheezes or rales CVS: Heart sounds are normal, no murmur noted, No JVD. ABG/GI: Nontender, soft, normal bowel sounds, no distention, no organomegaly, pelvic rock is negative NEURO: Oriented AOx3, neuro is grossly intact, sensation and motor is normal all 4 extremities moving, cranial nerves II through XII are intact, GCS is 15 PSYCH: Normal mood and affect SKIN: Patient has an abrasion on her right knee, she also has a laceration over her 4th finger on her right hand between the mid and proximal joints, patient has had this repaired incision is clean dry and intact, she does have some tenderness over the finger but does have full range of motion, warm and dry, no crepitus and without decubitus BACK: No CVA tenderness, no vertebral tenderness, no step-off's, no crepitus EXT: Atraumatic, hips are nontender, no pedal edema, normal color and temperature, normal range of motion of extremities with normal tendon exam, 2+ pulses in all four extremities Initial Vital Signs Initial Vital Signs: Vital Signs Temperature 98.2 F 06/16/19 14:25 Pulse Rate 78 06/16/19 14:25 Respiratory Rate 18 06/16/19 14:25 Blood Pressure 129/66 06/16/19 14:25 Pulse Oximetry 97 06/16/19 14:25 Scores GCS Franklin coma scale eye opening: Spontaneous Adriana coma scale verbal response: Orientated Adriana coma scale motor response: Obey commands Franklin coma scale total score: 15 Course Orders Ordered: ED Orders 06/16/19 14:38 EKG-12 Lead Stat 06/16/19 14:58 Complete Blood Count AUTO DIFF Stat Comprehensive Metabolic Panel Stat NT-proBNP (BNP-Adult 18+) Stat Troponin & CK Cardiac Panel Stat 06/16/19 15:17 CT head/brain wo con Stat XR chest 1V Stat 06/16/19 15:34 CT facial bones wo con Stat XR finger RT min 2V Stat Discontinued Medications Diphtheria/Tetanus/Acell Pertussis (Adacel) 0.5 ml IM .ONCE ONE Stop: 06/16/19 15:39 Last Admin: 06/16/19 15:59 Dose: 0.5 ml Documented by: FRANSISCA Sodium Chloride (Normal Saline 0.9%) 1,000 mls @ 1,000 mls/hr IV BOLUS ONE Stop: 06/16/19 16:15 Last Infusion: 06/16/19 17:19 Dose: 0 mls/hr Documented by: Admin: 06/16/19 15:59 Dose: 1,000 mls/hr Documented by: FRANSISCA Vital Signs Vital signs: Vital Signs - 8 hr 06/16/19 14:25 06/16/19 16:06 Temperature 98.2 F Pulse Rate 78 70 Respiratory Rate 18 19 Blood Pressure 129/66 Blood Pressure [Left Arm] 162/74 H Pulse Oximetry 97 98 MDM - Fall Lab Data Attestation: I reviewed the patient's lab results. Result diagrams: 06/16/19 14:58 06/16/19 14:58 Labs: Lab Results 06/16/19 06/16/19 06/16/19 Range/Units 14:58 14:58 14:58 WBC 8.9 (4.5-11.0) X10^3/uL RBC 4.52 (4.0-5.2) X10^6/uL Hgb 13.9 (12.0-16.0) g/dL Hct 40.2 (36-46) % MCV 89.1 (80-100) fL MCH 30.7 (26-34) PG MCHC 34.4 (30-36) % RDW 13.1 (11.6-14.8) % Plt Count 202 (150-400) X10^3/uL Neut % (Auto) 72.9 (50-75) % Lymph % (Auto) 14.8 L (25-40) % [place] % (Auto) 9.8 (3-14) % Eos % (Auto) 1.8 L (2-4) % Baso % (Auto) 0.7 (0-2) % Neut # (Auto) 6500 (8146-2973) /uL Lymph # (Auto) 1300 (6020-5138) /uL [place] # (Auto) 900 (0-900) /uL Eos # (Auto) 200 (0-450) /uL Baso # (Auto) 100 (0-100) /uL Sodium 141 (137-145) mmol/L Potassium 4.0 (3.4-5.1) mmol/L Chloride 102 (98-107) mmol/L Carbon Dioxide 28 (22-32) mmol/L BUN 36 H (7-17) mg/dL Creatinine 1.00 (0.52-1.04) mg/dL Estimated GFR 53.3 L (>60) mL/min BUN/Creatinine Ratio 36.0 H (6-22) Glucose 101 (80-110) mg/dL Calcium 10.7 H (8.4-10.2) mg/dL Total Bilirubin 0.5 (0.2-1.3) mg/dL AST 41 H (14-36) IU/L ALT 24 (<35) IU/L Alkaline Phosphatase 61 (38-126) U/L Total Creatine Kinase 161 H (30-135) U/L CK-MB (CK-2) 3.38 H (<2.37) ng/mL CK-MB (CK-2) Rel Index 2.1 (1.5-5.0) % Troponin I < 0.012 (0.01-0.034) ng/mL NT-Pro-B Natriuret Pep 262 (<450) pg/mL Total Protein 8.3 H (6.3-8.2) g/dL Albumin 4.6 (3.5-5.0) g/dL Globulin 3.7 (1.7-4.1) g/dL Albumin/Globulin Ratio 1.2 (1.0-2.8) Imaging Data CT scan - head: Radiologist's Impression: [address] [address] [address] Scan Report Signed Patient: Farrah Ricardo#: [id number] : 9Acct:[id number] Age/Sex: 79 / FDate of Service: 06/16/19 Loc: ED Accession Number: [id number] Procedure: CT head/brain wo con Ordering Provider: Concha Randall D.O. PROCEDURE: CT HEAD/BRAIN WO CON INDICATIONS: syncope TECHNIQUE: Noncontrast 4.5 mm thick angled axial sections acquired from the foramen magnum to the vertex, with coronal and sagittal reformats. For radiation dose reduction, the following was used: automated exposure control, adjustment of mA and/or kV according to patient size. COMPARISON: None. FINDINGS: Image quality: Excellent. CSF spaces: Basal cisterns are patent. No extra-axial fluid collections. The ventricles are symmetric in size and shape. Brain: No intracranial bleeds or masses. There is cerebral volume loss for age, with resultant ventricular and sulcal prominence. There are periventricular and deep white matter chronic small vessel ischemic changes. There is intracranial internal carotid artery atherosclerosis. Skull and face: Bilateral is a bone fractures. Sinuses: Visualized sinuses and mastoids are clear. IMPRESSION: Bilateral nasal bone fractures No acute intracranial process Dictated by: Wale Bolton M.D. on 06/16/2019 at 15:54 Approved by: Wale Bolton M.D. on 06/16/2019 at 15:[address]: Radiologist's Impression: [place] [address] CT Scan Report Signed Patient: Farrah Ricardo#: [id number] : 9Acct:[id number] Age/Sex: 79 / FDate of Service: 06/16/19 Loc: ED Accession Number: [id number] Procedure: CT facial bones wo con Ordering Provider: Concha Randall D.O. PROCEDURE: CT FACIAL BONES WO CON INDICATIONS: fall, nasal lac, repaired on orcas TECHNIQUE: Noncontrast 2.5 mm thick axial images acquired from the mandible through the fro ntal sinuses, with coronal and sagittal reformatting. For radiation dose reduction, the following was used: automated exposure control, adjustment of mA and/or kV according to patient size. COMPARISON: None. FINDINGS: Image quality: Excellent. Bones and teeth: Comminuted bilateral nasal bone fractures. Chronic left TMJ degeneration. Sinuses: Paranasal sinuses are aerated, without fluid levels, mucosal thickening, or mucoceles. Mastoid air cells are aerated. Soft tissues: No edema, masses, or fluid collections. No enlarged lymph nodes. No soft tissue lacerations or debris. Vascular: Visualized vascular structures appear normal in the absence of contrast. Bony vascular foramina and canals are intact. IMPRESSION: Comminuted bilateral nasal bone fractures Dictated by: Wale Bolton M.D. on 06/16/2019 at 15:56 Approved by: Wale Bolton M.D. on 06/16/2019 at 16:04 Chest x-ray: Radiologist's Impression: [address] [address] XRay Report Signed Patient: Farrah Ricardo#: [id number] : 9Acct:[id number] Age/Sex: 79 / FDate of Service: 06/16/19 Loc: ED Accession Number: [id number] Procedure: XR chest 1V Ordering Provider: Concha Randall D.O. PROCEDURE: XR CHEST 1V INDICATIONS: syncope TECHNIQUE: One view of the chest was acquired. COMPARISON: None. FINDINGS: Surgical changes and devices: None. Lungs and pleura: Low lung volumes with scattered subsegmental atelectasis/scarring. No pleural effusions or pneumothorax. Mediastinum: Mediastinal contours appear normal. Heart size is normal. Bones and chest wall: No suspicious bony lesions. Overlying soft tissues a ppear unremarkable. IMPRESSION: No acute disease Dictated by: Wale Bolton M.D. on 06/16/2019 at 16:06 Approved by: Wale Bolton M.D. on 06/16/2019 at 16:07 finger xray: Radiologist's Impression: [address] [address] XRay Report Signed Patient: Farrah Ricardo#: [id number] : 9Acct:[id number] Age/Sex: 79 / FDate of Service: 06/16/19 Loc: ED Accession Number: [id number] Procedure: XR finger RT min 2V Ordering Provider: Concha Randall D.O. PROCEDURE: XR FINGER RT MIN 2V INDICATIONS: finger pain, fall, lac, repaired already 4th finger TECHNIQUE: AP hand, 2 views of the right finger(s) acquired. COMPARISON: None. FINDINGS: Bones: No fractures or dislocations. No suspicious bony lesions. Diffuse interphalangeal joint degeneration. Ulnar minus variance incidentally noted and chronic distal radioulnar joint degeneration Soft tissues: No suspicious soft tissue calcifications. IMPRESSION: No fracture. No radiopaque foreign body identified Dictated by: Wale Bolton M.D. on 06/16/2019 at 16:04 Approved by: Wale Bolton M.D. on 06/16/2019 at 16:06 ECG Data Attestation: I personally reviewed and interpreted this ECG as follows: Prior ECG tracings: not available for review Interpretation: Sinus rhythm rate of 72 VT 167 QRS of 90 and QTC of 442. Nonspecific change. Possible depression V5 6 no elevation appreciated MDM Narrative Medical decision making narrative: Patient comes in department with a syncopal episode early this morning patient was seen approximately 10 hours after the event. Patient has nonspecific EKG change, her lab work shows elevated BUN, negative CBC, patient's GFR is 53 appears to be a baseline compared to prior renal function in 2018. Patient's calcium is at 10.7 with an AST of 41, CK-MB is 3.38 but troponins negative almost 10 hours after the event with no chest pain shortness of breath or other cardiac symptoms. BNP is a normal range., facial bones show nasal bone fracture which patient had laceration that area shows technically an open fracture. Patient was given prescription for oral antibiotics. Patient's finger x-ray is negative she also had a laceration that was repaired both laceration repairs do look good. And patient was had a little bit of oozing from the nose and a small amount of surgicell on her nose for ooze. Patient's C-spine was cleared. She was able to ambulate without issue we discussed potential causes for her syncopal episode but neurologic, cardiac or pulmonary less likely. Patient is feeling well and would like to return home she has transportation to [place] to [facility] and the medics on the other side are going to pick her up and take her home. Discharge Plan Departure Patient Disposition: Home Clinical Impression: Laceration of nose Qualifiers: Encounter type: initial encounter Qualified Code(s): S01.21XA - Laceration without foreign body of nose, initial encounter Syncope Qualifiers: Syncope type: unspecified Qualified Code(s): R55 - Syncope and collapse Laceration of finger of right hand Qualifiers: Encounter type: initial encounter Finger: ring finger Damage to nail status: without damage Foreign body presence: without foreign body Qualified Code(s): S61.214A - Laceration without foreign body of right ring finger without damage to nail, initial encounter Fracture of nasal bone Qualifiers: Encounter type: initial encounter Discharge Date/Time: 06/16/19 18:03 Instructions: DI for Nose Fracture Activity Restrictions/Additional Instructions: Follow-up with your physician in the next week for recheck. Call for an appointment. Continue home medications as prescribed. Make sure you are drinking plenty of fluids daily. I would recommend a short course of antibiotics as you technically have an open fracture for your nasal bone. Your prescription was sent to [facility] on [facility]. Wound Care: Keep wound(s) clean and dry. Wash daily with soap and water only. Do not use over the counter products (alcohol or peroxide)on the wounds unless instructed by a physician. If wound condition worsens (increased/expanding redness, developing fluid blisters, or worsening pain), either contact your doctor for an urgent re- assessment , or return to the Emergency Department. Return to the Emergency Department for any new or worsening symptoms. Return to the ED, urgent care, or vist a primary care doctor for removal or suture or judie in the next 5 days. Return if fever greater than 100.4 Fahrenheit, increased swelling, increasing pain or worsening symptoms such as increased discharge or spreading redness. Severe headaches, recurrent dizziness, lightheadedness or passing out, new chest pain or shortness of breath, persistent vomiting, new weakness numbness, new neck or back pain, signs of infection and her laceration site or other new or concerning symptoms. Prescriptions: New clindamycin HCl 300 mg capsule 300 mg PO Q6H 5 Days Qty: 20 RF: 0 No Action calcium carbonate [Calcium 500] 500 mg calcium (1,250 mg) Tablet 1,500 mg PO DAILY Qty: 0 RF: 0 ascorbic acid (vitamin C) [Vitamin C] 1,000 mg Tablet 1,000 mg PO DAILY RF: 0 aspirin 81 mg Tablet,Delayed Release (Dr/Ec) 81 mg PO DAILY RF: 0 simvastatin 40 mg Tablet 1 tab PO DAILY RF: 0 omega 6-hsh-npn-fish oil [Fish Oil] 1,000 mg (120 mg-180 mg) Capsule 1 tab PO BID RF: 0 latanoprost 0.005 % drops 1 drp ophthalmic (eye) DAILY RF: 0 celecoxib 100 mg capsule 200 mg PO DAILY RF: 0 cholecalciferol (vitamin D3) [Vitamin D3] 1,000 unit Capsule 1,000 unit PO DAILY RF: 0 naproxen sodium [Aleve] 220 mg Capsule 440 mg PO BID PRN (Reason: Pain (Scale Score 1-3)) RF: 0 Referrals: Oscar Julian MD [Primary Care Provider] -
[2019-06-16 15:30] LABS: Alanine Aminotransferase 24 IU/L (<35); Albumin 4.6 g/dL (3.5-5.0); Aspartate Aminotransferase 41 IU/L (14-36); Bilirubin Total 0.5 mg/dL (0.2-1.3); Blood Urea Nitrogen 36 mg/dL (7-17); Calcium 10.7 mg/dL (8.4-10.2); Carbon Dioxide 28 mmol/L (22-32); Chloride 102 mmol/L (98-107); Creatine Kinase 161 U/L (30-135); Estimated Glomerular Filt Rate 53.3 mL/min (>60); Glucose 101 mg/dL (80-110); HEMOLYSIS < 15 (0-50); Sodium 141 mmol/L (137-145)
--- NOTE | 2019-06-16 15:34 | DI.CT.S_ITS ---
PROCEDURE: CT FACIAL BONES WO CON INDICATIONS: fall, nasal lac, repaired on orcas TECHNIQUE: Noncontrast 2.5 mm thick axial images acquired from the mandible through the frontal sinuses, with coronal and sagittal reformatting. For radiation dose reduction, the following was used: automated exposure control, adjustment of mA and/or kV according to patient size. COMPARISON: None. FINDINGS: Image quality: Excellent. Bones and teeth: Comminuted bilateral nasal bone fractures. Chronic left TMJ degeneration. Sinuses: Paranasal sinuses are aerated, without fluid levels, mucosal thickening, or mucoceles. Mastoid air cells are aerated. Soft tissues: No edema, masses, or fluid collections. No enlarged lymph nodes. No soft tissue lacerations or debris. Vascular: Visualized vascular structures appear normal in the absence of contrast. Bony vascular foramina and canals are intact. IMPRESSION: Comminuted bilateral nasal bone fractures Dictated by: Wale Bolton M.D. on 06/16/2019 at 15:56 Approved by: Wale Bolton M.D. on 06/16/2019 at 16:04
--- NOTE | 2019-06-16 15:34 | DI.RAD.S_ITS ---
PROCEDURE: XR FINGER RT MIN 2V INDICATIONS: finger pain, fall, lac, repaired already 4th finger TECHNIQUE: AP hand, 2 views of the right finger(s) acquired. COMPARISON: None. FINDINGS: Bones: No fractures or dislocations. No suspicious bony lesions. Diffuse interphalangeal joint degeneration. Ulnar minus variance incidentally noted and chronic distal radioulnar joint degeneration Soft tissues: No suspicious soft tissue calcifications. IMPRESSION: No fracture. No radiopaque foreign body identified Dictated by: Wale Bolton M.D. on 06/16/2019 at 16:04 Approved by: Wale Bolton M.D. on 06/16/2019 at 16:06
[2019-06-16 15:36] LABS: Albumin Globulin Ratio 1.2 (1.0-2.8); Alkaline Phosphatase 61 U/L (38-126); Globulin 3.7 g/dL (1.7-4.1); Total Protein 8.3 g/dL (6.3-8.2)
[2019-06-16 15:41] LABS: Troponin I < 0.012 ng/mL (0.01-0.034)
[2019-06-16 15:46] LABS: Creatine Kinase MB 3.38 ng/mL (<2.37); NT-proBNP (BNP-Adult 18+) 262 pg/mL (<450)
[2019-06-16 15:47] LABS: CKMB % Relative Index 2.1 % (1.5-5.0)
[2019-06-16] MEDS: SODIUM CHLORIDE 0.9% 1,000 ML 1000 ML IV (15:59)
[2019-06-16] MEDS: TET,DIPH,PERTUSS(ACELL),VAC/PF 0.5 ML SYRINGE IM (15:59)
[2019-06-16 16:06] VITALS: BP 162/74; PULSE 70; RESP 19; O2SAT 98
--- NOTE | 2019-06-16 17:10 | PC.NURSE ---
Patient was able to walk with walker down and back in the spangler.
== END 2019-06-16 18:03 | disposition home or self-care (01) ==
PROVIDERS: Emergency Provider Emergency Medicine; PCP Family Medicine
DX: S02.2XXA Fracture of nasal bones, initial encounter for closed fracture (principal); S61.214A Laceration without foreign body of right ring finger without damage to nail, initial encounter; R55 Syncope and collapse; W18.12XA Fall from or off toilet with subsequent striking against object, initial encounter; Z23 Encounter for immunization
CPT/HCPCS: 36415; 70450; 70486; 71045; 73140; 80053; 82550; 82553; 83880; 84484; 85025; 90471; 93005; 96360; 99285; 90715

== ENCOUNTER → 2021-02-19 12:45 | Outpatient (CLI) | payer MEDICARE, OTHER, SELFPAY | PROVIDERS: PCP Family Medicine; Visit Provider Physician Assistant Medical | DX: R30.0 Dysuria (principal) | CPT/HCPCS: 87077; 87086; 87186 ==

== ENCOUNTER 2021-03-07 18:43 | Emergency (ER) | payer MEDICARE, OTHER, SELFPAY ==
[2021-03-07] VITALS (8 sets, daily range): BP systolic 182–222; BP diastolic 75–86; PULSE 60–78; RESP 15–27; TEMP 36.1; O2SAT 84–99; BMI 34.7
--- NOTE | 2021-03-07 19:04 | ED.DIZZY ---
HPI - Dizziness General Chief Complaint: Dizziness Stated Complaint: DIZZY Time Seen by Provider: 03/07/21 18:47 History of Present Illness HPI Narrative: Patient is an 81-year-old female with history of hyperlipidemia, multiple sclerosis presenting today from her primary care office with intermittent dizziness ongoing for about a week and half. It seems to be quite positional. He says yesterday when she bent down to tie her shoe she got extremely dizzy. Previously it has been whenever she stood up turn her head or laid down. It does seem to last long but it is quite frequent. She has had days that were pretty good she thought if she was getting over it then the following day with happen again. She has no numbness tingling or weakness she has no chest pain or palpitations. It is not any worse today than it has been previously however she was at her primary care doctor follow-up with a leg wound that happened about a week ago and she happened to mention her dizziness. She was then sent to the ED for further evaluation. She has is complaining of some left-sided neck pain. Denies any injury. She is noted to be high she says is not normal in upon reviewing records from the office today showed a blood pressure of 138/80 Related Data Home Medications Medication Instructions Recorded Confirmed calcium carbonate 500 mg calcium 1,500 mg PO DAILY #0 01/21/10 11/04/20 (1,250 mg) tablet (Calcium 500) ascorbic acid (vitamin C) 1,000 mg 1,000 mg PO DAILY 01/17/18 11/04/20 tablet (Vitamin C) aspirin 81 mg tablet,delayed 81 mg PO DAILY 01/17/18 11/04/20 release omega 5-lvr-qri-fish oil 1,000 mg 1 tab PO BID 01/17/18 11/04/20 (120 mg-180 mg) capsule (Fish Oil) cholecalciferol (vitamin D3) 25 1,000 unit PO DAILY 06/16/18 11/04/20 mcg (1,000 unit) capsule (Vitamin D3) celecoxib 100 mg capsule 200 mg PO DAILY 06/16/19 11/04/20 latanoprost 0.005 % eye drops 1 drp OPHTHALMIC (EYE) DAILY 06/16/19 11/04/20 Previous Rx's Medication Instructions Recorded simvastatin 40 mg tablet 40 mg PO DAILY #30 tab 10/15/20 epinephrine 0.3 mg/0.3 mL 0.3 mg IM ONCE #1 ea 11/04/20 injection, auto-injector mupirocin 2 % topical ointment 1 applic TOPICAL BID #22 g 02/26/21 meclizine 25 mg tablet 25 mg PO TID PRN #10 tab 03/07/21 Allergies Allergy/AdvReac Type Severity Reaction Status Date / Time Penicillins Allergy Intermediate Hives Verified 03/07/21 19:12 adhesive Allergy Unknown Rash Verified 03/07/21 19:12 Sulfa (Sulfonamide Allergy Unknown Hives Verified 03/07/21 19:12 Antibiotics) morphine AdvReac Severe Vomiting Verified 03/07/21 19:12 meperidine [From Demerol] AdvReac extreme Verified 03/07/21 19:12 aggitation/fatigue Review of Systems Review of Systems Narrative: GENERAL: Denies chills, fatigue, malaise, fever, sweats, travel HEENT: Denies sinus pain, ear pain, sore throat, difficulty swallowing, neck pain RESPIRATORY: Denies dyspnea, cough, wheezing, hemoptysis, sputum. CARDIOVASCULAR: Denies chest pain, palpitations, orthopnea, edema GASTROINTESTINAL: Denies nausea, vomiting, abdominal pain, diarrhea, constipation, melena. : Denies dysuria, frequency, incontinence, hematuria, urinary retention, flank pain. MUSCULOSKELETAL: Denies weakness, joint pain, or bony pain SKIN: No rash, no erythema, no pruritus NEUROLOGIC: See HPI PSYCHIATRIC: No concerning psychosocial issues. 12 point review of systems is negative except for those stated above and HPI Patient History Medical History (Updated 03/07/21 @ 20:49 by Lavinia Macias DO) Dyslipidemia Healthy adult Multiple sclerosis Surgical History No pertinent past surgical history Social History household members: spouse Smoking Status: Former smoker Smoking Status: Former smoker alcohol intake frequency: 0-2 drinks per day Substance Use Type: does not use Exam Initial Vital Signs Initial Vital Signs: Vital Signs Temperature 96.9 F L 03/07/21 18:45 Pulse Rate 75 03/07/21 18:45 Respiratory Rate 18 03/07/21 18:45 Blood Pressure 222/86 H 03/07/21 18:45 Pulse Oximetry 99 03/07/21 18:45 GENERAL: Alert well-appearing 81-year-old female HEENT: Head atraumatic,EOMI, pupils reactive, face symmetric, moist mucous membranes NECK: No vertebral tenderness no step-offs full range of motion CARDIOVASCULAR: Regular rate and rhythm without murmurs, rubs or gallops. RESPIRATORY: Breath sounds equal bilaterally, no wheezes rales or rhonchi. ABDOMEN: Soft, nontender. Normoactive bowel sounds all 4 quadrants. No guarding or rebound. EXTREMITIES: Normal range of motion, no clubbing or edema. Neurovascularly intact NEUROLOGICAL: Alert and oriented x4.Normal gait and speech. Cranial nerves II through XII grossly intact. Good fkiquh-dx-bqpb, good xqeu-nt-wsai, strength equal bilaterally, no dysarthria or aphasia, sensation in tact to soft touch bilaterally, no visual changes, no facial droop SKIN: Warm, dry, no laceration, no petechiae, no rashes or lesions. Scores NIH Stroke Scale Level of Conciousness: Alert, keenly responsive Ask month/age: Answers both questions correctly. Open/close eyes, close hand: Performs both tasks correctly Best gaze horizontal: Normal Visual schaffer: No visual loss Facial palsy: Normal symetrical movement Left arm drift: No drift for full 10 sec Right arm drift: No drift for full 10 sec Left leg drift: No drift for full 5 sec Right leg drift: No drift for full 5 sec Limb ataxia: Absent Sensory on face/arms/legs: Normal, no sensory loss Best language: No aphasia, normal Dysarthria: Normal Extinction or inattention: No abnormality Total NIH Stroke scale score: 0 Course Orders Ordered: ED Orders 03/07/21 19:05 Complete Blood Count AUTO DIFF Stat Comprehensive Metabolic Panel Stat Lipase Stat Troponin & CK Cardiac Panel Stat 03/07/21 19:08 CT angio head and neck Stat 03/07/21 19:09 XR chest 1V Stat EKG-12 Lead Stat Discontinued Medications Meclizine HCl (Meclizine Hcl 12.5 Mg Tablet) 25 mg PO NOW ONE Stop: 03/07/21 20:50 Last Admin: 03/07/21 20:57 Dose: 25 mg Documented by: KELY Vital Signs Vital signs: Vital Signs - 8 hr 03/07/21 18:45 03/07/21 18:54 03/07/21 18:56 Temperature 96.9 F L Pulse Rate 75 75 78 Respiratory Rate 18 27 H Blood Pressure 222/86 H 222/86 H Pulse Oximetry 99 84 L 85 L 03/07/21 19:00 03/07/21 19:09 03/07/21 19:30 Temperature Pulse Rate 69 63 60 Respiratory Rate 15 16 15 Blood Pressure 206/84 H Pulse Oximetry 98 99 97 03/07/21 19:31 03/07/21 21:00 Temperature Pulse Rate 60 Respiratory Rate 22 Blood Pressure 187/79 H 182/75 H Pulse Oximetry 97 MDM - Dizziness Lab Data Result diagrams: 03/07/21 19:05 03/07/21 19:05 Labs: Lab Results 03/07/21 03/07/21 Range/Units 19:05 19:05 WBC 6.0 (4.5-11.0) X10^3/uL RBC 4.52 (4.0-5.2) X10^6/uL Hgb 13.5 (12.0-16.0) g/dL Hct 40.0 (36-46) % MCV 88.4 (80-100) fL MCH 29.8 (26-34) PG MCHC 33.8 (30-36) % RDW 12.9 (11.6-14.8) % Plt Count 173 (150-400) X10^3/uL Neut % (Auto) 58.7 (50-75) % Lymph % (Auto) 27.8 (25-40) % Hitchcock % (Auto) 9.6 (3-14) % Eos % (Auto) 2.9 (2-4) % Baso % (Auto) 1.0 (0-2) % Neut # (Auto) 3500 (4534-7366) /uL Lymph # (Auto) 1700 (5096-4846) /uL Hitchcock # (Auto) 600 (0-900) /uL Eos # (Auto) 200 (0-450) /uL Baso # (Auto) 100 (0-100) /uL Sodium 139 (137-145) mmol/L Potassium 3.8 (3.4-5.1) mmol/L Chloride 100 (98-107) mmol/L Carbon Dioxide 30 (22-32) mmol/L BUN 25 H (7-17) mg/dL Creatinine 1.05 H (0.52-1.04) mg/dL Estimated GFR 50.2 L (>60) mL/min BUN/Creatinine Ratio 23.8 H (6-22) Glucose 99 (80-110) mg/dL Calcium 10.6 H (8.4-10.2) mg/dL Total Bilirubin 0.7 (0.2-1.3) mg/dL AST 33 (14-36) IU/L ALT 15 (<35) IU/L Alkaline Phosphatase 63 (38-126) U/L Total Creatine Kinase 74 (30-135) U/L CK-MB (CK-2) TNP CK-MB (CK-2) Rel Index TNP Troponin I < 0.012 (0.01-0.034) ng/mL Total Protein 8.1 (6.3-8.2) g/dL Albumin 4.5 (3.5-5.0) g/dL Globulin 3.6 (1.7-4.1) g/dL Albumin/Globulin Ratio 1.3 (1.0-2.8) Lipase 119 (23-300) U/L Imaging Data CTA - brain/neck: Radiologist's Impression: PROCEDURE:? CT ANGIO HEAD AND NECK ? INDICATIONS:? dizzy ? TECHNIQUE:? Pre-contrast 4.5 mm thick sections acquired from the foramen magnum to the vertex.? After the administration of intravenous contrast, 1 mm thick sections acquired from the aortic arch through the [place] of [place].? Post-contrast 4.5 mm thick sections then re-acquired from the foramen magnum to the vertex.? 3-dimensional zlfeokd-zuzjfezfy-nmqzdybnio (MIP) and/or volume rendering reformats were acquired of the central intracranial vasculature and neck separately. ? COMPARISON:? [facility], CT, CT HEAD/BRAIN WO CON, 06/16/2019, 15:30. ? FINDINGS:? Image quality:? Excellent.? ? BRAIN:? CSF spaces:? Ventricles are normal in size and shape.? Basal cisterns are patent.? No extra-axial fluid collections.? ? Brain:? No midline shift.? No intracranial bleeds or masses.? No area of hypodensity in a large vascular distribution to suggest acute infarction. Periventricular hypodensity consistent with chronic microvascular ischemic change. Age-related parenchymal loss. ? Skull and face:? Calvarium and facial bones appear intact, without suspicious lesions.? Orbits appear normal.? ? Sinuses:? Sinuses and mastoids are clear.? ? HEAD CT ANGIOGRAPHY:? Anterior circulation:? Intracranial internal carotid arteries are normal in size and flow.? The flow within the paired anterior cerebral arteries is normal and symmetric.? The flow within the middle cerebral arteries is normal and symmetric.? The anterior communicating artery is seen.? No aneurysms are seen.? ? Posterior circulation:? Visualized portions of the vertebral arteries demonstrate normal caliber, and join to form a normal appearing basilar artery.? Flow within the posterior cerebral arteries is normal and symmetric.? No aneurysms are seen.? ? NECK CT ANGIOGRAPHY:? Carotid system:? Bovine origin of the left CCA.? Moderate plaque.? The common carotid arteries demonstrate normal caliber and courses.? The bifurcation regions are both widely patent.? Less than 50% stenosis in the bilateral ICA at the carotid bulbs.? Right ICA is tortuous. ? Posterior circulation:? The origins of the vertebral arteries both appear widely patent.? The more superior extracranial portions of both vertebral arteries also demonstrate normal courses and calibers.? They join to form a normal appearing basilar artery.? ? Soft tissues:? Visualized neck soft tissues demonstrate no suspicious abnormalities.? ? Bones:? No suspicious bony lesions.? Visualized cervical spine appears normally aligned.? IMPRESSION:? ? 1. No acute intracranial hemorrhage. ? 2. No large vessel occlusion. ? 3. Less than 50% stenosis in the bilateral ICA at the carotid bulbs.? Moderate calcified plaque. ? ? Any quantitative measurements of stenosis were performed using NASCET criteria.? ? ? Dictated by: Rajan Childs M.D. on 03/07/2021 at 20:30 ? ? Approved by: Rajan Childs M.D. on 03/07/2021 at 20:38 ? ECG Data Interpretation: Sinus rhythm rate 66 NC interval 184 QRS [address] changes, no priors MDM Narrative Medical decision making narrative: Patient is an 81-year-old female who has had dizzy like symptoms that is worse with movement and position ongoing for over 1 week. It is not any worse today no changes. However she was sent for further evaluation. CT angio does not show any abnormality no history of stroke she has no neurologic deficits. At this time patient's symptoms are most consistent with vertigo. She is given a dose of meclizine in the ED see if it helps and a prescription for her to have at home. Blood pressure is noted to be mildly elevated in the ED and has come down without any intervention. Previous blood pressure today in the office was within normal limits recommend she continue to follow at. Discharge Plan Departure Patient Disposition: Home Clinical Impression: Vertigo Instructions: DI for Vertigo Activity Restrictions/Additional Instructions: *You have been diagnosed with vertigo *What to do: At this time blood work and CT scan are negative. You likely have a vertigo. A may need more testing with your primary care provider. *Continue to take medications as directed Meclizine 25 mg every 8 hours if needed for dizziness--> SENT TO [facility] *Follow up with your primary care provider in 2-3 days *Return to ER if you should have increasing dizziness, weakness, numbness, tingling or any new, worsening or concerning symptoms Prescriptions: New meclizine 25 mg tablet 25 mg PO TID PRN (Reason: dizziness) Qty: 10 RF: 0 No Action calcium carbonate [Calcium 500] 500 mg calcium (1,250 mg) Tablet 1,500 mg PO DAILY Qty: 0 RF: 0 simvastatin 40 mg tablet 40 mg PO DAILY Qty: 30 RF: 0 ascorbic acid (vitamin C) [Vitamin C] 1,000 mg Tablet 1,000 mg PO DAILY RF: 0 aspirin 81 mg Tablet,Delayed Release (Dr/Ec) 81 mg PO DAILY RF: 0 omega 2-vvd-mic-fish oil [Fish Oil] 1,000 mg (120 mg-180 mg) Capsule 1 tab PO BID RF: 0 latanoprost 0.005 % drops 1 drp ophthalmic (eye) DAILY RF: 0 celecoxib 100 mg capsule 200 mg PO DAILY RF: 0 cholecalciferol (vitamin D3) [Vitamin D3] 1,000 unit Capsule 1,000 unit PO DAILY RF: 0 epinephrine 0.3 mg/0.3 mL auto-injector 0.3 mg IM ONCE Qty: 1 RF: 0 mupirocin 2 % ointment 1 applic topical BID Qty: 22 RF: 0 Referrals: Oscar Julian MD [Primary Care Provider] -
--- NOTE | 2021-03-07 19:08 | DI.CT.S_ITS ---
PROCEDURE: CT ANGIO HEAD AND NECK INDICATIONS: dizzy TECHNIQUE: Pre-contrast 4.5 mm thick sections acquired from the foramen magnum to the vertex. After the administration of intravenous contrast, 1 mm thick sections acquired from the aortic arch through the [place] of [place]. Post-contrast 4.5 mm thick sections then re-acquired from the foramen magnum to the vertex. 3-dimensional tolaabb-hiwygnrbb-rsgbheqyoh (MIP) and/or volume rendering reformats were acquired of the central intracranial vasculature and neck separately. COMPARISON: [facility], CT, CT HEAD/BRAIN WO CON, 06/16/2019, 15:30. FINDINGS: Image quality: Excellent. BRAIN: CSF spaces: Ventricles are normal in size and shape. Basal cisterns are patent. No extra-axial fluid collections. Brain: No midline shift. No intracranial bleeds or masses. No area of hypodensity in a large vascular distribution to suggest acute infarction. Periventricular hypodensity consistent with chronic microvascular ischemic change. Age-related parenchymal loss. Skull and face: Calvarium and facial bones appear intact, without suspicious lesions. Orbits appear normal. Sinuses: Sinuses and mastoids are clear. HEAD CT ANGIOGRAPHY: Anterior circulation: Intracranial internal carotid arteries are normal in size and flow. The flow within the paired anterior cerebral arteries is normal and symmetric. The flow within the middle cerebral arteries is normal and symmetric. The anterior communicating artery is seen. No aneurysms are seen. Posterior circulation: Visualized portions of the vertebral arteries demonstrate normal caliber, and join to form a normal appearing basilar artery. Flow within the posterior cerebral arteries is normal and symmetric. No aneurysms are seen. NECK CT ANGIOGRAPHY: Carotid system: Bovine origin of the left CCA. Moderate plaque. The common carotid arteries demonstrate normal caliber and courses. The bifurcation regions are both widely patent. Less than 50% stenosis in the bilateral ICA at the carotid bulbs. Right ICA is tortuous. Posterior circulation: The origins of the vertebral arteries both appear widely patent. The more superior extracranial portions of both vertebral arteries also demonstrate normal courses and calibers. They join to form a normal appearing basilar artery. Soft tissues: Visualized neck soft tissues demonstrate no suspicious abnormalities. Bones: No suspicious bony lesions. Visualized cervical spine appears normally aligned. IMPRESSION: 1. No acute intracranial hemorrhage. 2. No large vessel occlusion. 3. Less than 50% stenosis in the bilateral ICA at the carotid bulbs. Moderate calcified plaque. Any quantitative measurements of stenosis were performed using NASCET criteria. Dictated by: Rajan Childs M.D. on 03/07/2021 at 20:30 Approved by: Rajan Childs M.D. on 03/07/2021 at 20:38
--- NOTE | 2021-03-07 19:09 | DI.RAD.S_ITS ---
PROCEDURE: XR CHEST 1V INDICATIONS: dizzy TECHNIQUE: One view of the chest was acquired. COMPARISON: [facility], CR, XR CHEST 1V, 06/16/2019, 15:36. FINDINGS: Surgical changes and devices: None. Lungs and pleura: Lungs are clear. No pleural effusions or pneumothorax. Mediastinum: Mediastinal contours appear normal. Heart size is normal. Bones and chest wall: No suspicious bony lesions. Overlying soft tissues appear unremarkable. IMPRESSION: No acute cardiopulmonary abnormality. Dictated by: Rajan Childs M.D. on 03/07/2021 at 19:39 Approved by: Rajan Childs M.D. on 03/07/2021 at 19:39
[2021-03-07 19:19] LABS: Add Manual Diff / Slide Review NO; Basophils Absolute Auto 100 /uL (0-100); Eosinophils Absolute Auto 200 /uL (0-450); Eosinophils Percent Auto 2.9 % (2-4); Hemoglobin 13.5 g/dL (12.0-16.0); Lymphocytes Absolute Auto 1700 /uL (1100-4500); Lymphocytes Percent Auto 27.8 % (25-40); Mean Corpuscular HGB Conc 33.8 % (30-36); Mean Corpuscular Hemoglobin 29.8 PG (26-34); Mean Corpuscular Volume 88.4 fL (80-100); Monocytes Absolute Auto 600 /uL (0-900); Monocytes Percent Auto 9.6 % (3-14); Neutrophils Absolute Auto 3500 /uL (1500-7000); Neutrophils Percent Auto 58.7 % (50-75); Platelet Count 173 X10^3/uL (150-400); Red Blood Cell Count 4.52 X10^6/uL (4.0-5.2); Red Cell Distribution Width 12.9 % (11.6-14.8)
[2021-03-07 19:44] LABS: Alanine Aminotransferase 15 IU/L (<35); Albumin 4.5 g/dL (3.5-5.0); Albumin Globulin Ratio 1.3 (1.0-2.8); Alkaline Phosphatase 63 U/L (38-126); Aspartate Aminotransferase 33 IU/L (14-36); BUN Creatinine Ratio 23.8 (6-22); Bilirubin Total 0.7 mg/dL (0.2-1.3); Blood Urea Nitrogen 25 mg/dL (7-17); Calcium 10.6 mg/dL (8.4-10.2); Carbon Dioxide 30 mmol/L (22-32); Chloride 100 mmol/L (98-107); Creatine Kinase 74 U/L (30-135); Estimated Glomerular Filt Rate 50.2 mL/min (>60); Globulin 3.6 g/dL (1.7-4.1); Glucose 99 mg/dL (80-110); HEMOLYSIS < 15 (0-50); Lipase 119 U/L (23-300); Potassium 3.8 mmol/L (3.4-5.1); Sodium 139 mmol/L (137-145); Total Protein 8.1 g/dL (6.3-8.2)
[2021-03-07 19:56] LABS: Troponin I < 0.012 ng/mL (0.01-0.034)
[2021-03-07] MEDS: MECLIZINE HCL 12.5 MG TABLET 25 MG PO (20:57)
== END 2021-03-07 21:08 | disposition home or self-care (01) ==
PROVIDERS: Emergency Provider Emergency Medicine; PCP Family Medicine
DX: R42 Dizziness and giddiness (principal); R03.0 Elevated blood-pressure reading, without diagnosis of hypertension
CPT/HCPCS: 36415; 70496; 70498; 71045; 80053; 82550; 83690; 84484; 85025; 93005; 99284

== ENCOUNTER → 2021-04-01 14:43 | Outpatient (CLI) | payer MEDICARE, OTHER, SELFPAY | PROVIDERS: PCP Family Medicine; Visit Provider Physician Assistant | DX: S80.12XA Contusion of left lower leg, initial encounter (principal) | CPT/HCPCS: 87070; 87075; 87205 ==

== ENCOUNTER → 2021-04-18 10:12 | Outpatient (CLI) | payer MEDICARE, OTHER, SELFPAY | PROVIDERS: Family Provider Family Medicine; PCP Family Medicine; Referring Provider Physician Assistant; Visit Provider Family Medicine | DX: I87.2 Venous insufficiency (chronic) (peripheral) (principal); L08.9 Local infection of the skin and subcutaneous tissue, unspecified; L97.812 Non-pressure chronic ulcer of other part of right lower leg with fat layer exposed | CPT/HCPCS: 11042; 87070; 87075; 87077; 87147; 87186; 87205; 93922; 99204; 99213 ==

== ENCOUNTER → 2021-04-25 09:40 | Outpatient (CLI) | payer MEDICARE, OTHER, SELFPAY | PROVIDERS: Family Provider Family Medicine; PCP Family Medicine; Referring Provider Family Medicine; Visit Provider Family Medicine | DX: I87.2 Venous insufficiency (chronic) (peripheral) (principal); L97.822 Non-pressure chronic ulcer of other part of left lower leg with fat layer exposed | CPT/HCPCS: 99212 ==

== ENCOUNTER → 2021-05-12 13:54 | Outpatient (CLI) | payer MEDICARE, OTHER, SELFPAY | PROVIDERS: Family Provider Family Medicine; PCP Family Medicine; Referring Provider Physician Assistant; Visit Provider Family Medicine | DX: I87.2 Venous insufficiency (chronic) (peripheral) (principal); L97.822 Non-pressure chronic ulcer of other part of left lower leg with fat layer exposed | CPT/HCPCS: 29581 ==

== ENCOUNTER → 2021-05-14 14:20 | Outpatient (CLI) | payer MEDICARE, OTHER, SELFPAY | PROVIDERS: Family Provider Family Medicine; PCP Family Medicine; Referring Provider Family Medicine; Visit Provider Family Medicine | DX: I87.2 Venous insufficiency (chronic) (peripheral) (principal); L97.822 Non-pressure chronic ulcer of other part of left lower leg with fat layer exposed | CPT/HCPCS: 29580 ==

== ENCOUNTER → 2021-05-21 14:31 | Outpatient (CLI) | payer MEDICARE, OTHER, SELFPAY | PROVIDERS: Family Provider Family Medicine; PCP Family Medicine; Referring Provider Family Medicine; Visit Provider Family Medicine | DX: I87.2 Venous insufficiency (chronic) (peripheral) (principal); L97.822 Non-pressure chronic ulcer of other part of left lower leg with fat layer exposed | CPT/HCPCS: 29581 ==

== ENCOUNTER → 2021-05-29 11:25 | Outpatient (CLI) | payer MEDICARE, OTHER, SELFPAY | PROVIDERS: Family Provider Family Medicine; PCP Family Medicine; Referring Provider Family Medicine; Visit Provider Family Medicine | DX: I87.2 Venous insufficiency (chronic) (peripheral) (principal); L97.822 Non-pressure chronic ulcer of other part of left lower leg with fat layer exposed; L08.9 Local infection of the skin and subcutaneous tissue, unspecified; R60.0 Localized edema | CPT/HCPCS: 11042; 87070; 87075; 87077; 87186; 87205; 99213; 99214 ==

== ENCOUNTER → 2021-06-05 11:54 | Outpatient (CLI) | payer MEDICARE, OTHER, SELFPAY | PROVIDERS: Family Provider Family Medicine; PCP Family Medicine; Referring Provider Family Medicine; Visit Provider Family Medicine | DX: I87.2 Venous insufficiency (chronic) (peripheral) (principal); L97.822 Non-pressure chronic ulcer of other part of left lower leg with fat layer exposed; R60.0 Localized edema; L08.9 Local infection of the skin and subcutaneous tissue, unspecified; B95.7 Other staphylococcus as the cause of diseases classified elsewhere | CPT/HCPCS: 11042; 99214 ==

== ENCOUNTER → 2021-06-12 10:23 | Outpatient (CLI) | payer MEDICARE, OTHER, SELFPAY | PROVIDERS: Family Provider Family Medicine; PCP Family Medicine; Referring Provider Family Medicine; Visit Provider Family Medicine | DX: I87.2 Venous insufficiency (chronic) (peripheral) (principal); R60.0 Localized edema; Z87.2 Personal history of diseases of the skin and subcutaneous tissue | CPT/HCPCS: 99212; 99213 ==

== ENCOUNTER → 2021-08-28 11:33 | Outpatient (CLI) | payer MEDICARE, OTHER, SELFPAY ==
[2021-08-28 18:49] LABS: Add Manual Diff / Slide Review NO; Basophils Absolute Auto 0 /uL (0-100); Basophils Percent Auto 0.7 % (0-2); Eosinophils Absolute Auto 100 /uL (0-450); Eosinophils Percent Auto 3.1 % (2-4); Hematocrit 36.2 % (36-46); Hemoglobin 12.4 g/dL (12.0-16.0); Lymphocytes Absolute Auto 1300 /uL (1100-4500); Lymphocytes Percent Auto 27.8 % (25-40); Mean Corpuscular HGB Conc 34.2 % (30-36); Mean Corpuscular Hemoglobin 30.4 PG (26-34); Mean Corpuscular Volume 88.7 fL (80-100); Monocytes Absolute Auto 500 /uL (0-900); Monocytes Percent Auto 11.2 % (3-14); Neutrophils Absolute Auto 2600 /uL (1500-7000); Neutrophils Percent Auto 57.2 % (50-75); Platelet Count 190 X10^3/uL (150-400); Red Blood Cell Count 4.09 X10^6/uL (4.0-5.2); Red Cell Distribution Width 13.1 % (11.6-14.8); White Blood Cell Count 4.5 X10^3/uL (4.5-11.0)
[2021-08-28 18:56] LABS: Alanine Aminotransferase 12 IU/L (<35); Albumin 3.9 g/dL (3.5-5.0); Albumin Globulin Ratio 1.3 (1.0-2.8); Alkaline Phosphatase 54 U/L (38-126); Aspartate Aminotransferase 28 IU/L (14-36); Bilirubin Total 0.6 mg/dL (0.2-1.3); Blood Urea Nitrogen 24 mg/dL (7-17); Calcium 9.5 mg/dL (8.4-10.2); Carbon Dioxide 30 mmol/L (22-32); Chloride 102 mmol/L (98-107); Estimated Glomerular Filt Rate 51 mL/min (>60); Glucose 108 mg/dL (80-110); HEMOLYSIS < 15 (0-50); Potassium 4.4 mmol/L (3.4-5.1); Sodium 138 mmol/L (137-145); Total Protein 6.9 g/dL (6.3-8.2)
[2021-08-30 08:35] LABS: Calcium 9.6 mg/dL (8.7-10.3); Parathyroid Hormone, Intact 50 pg/mL (15-65)
== END ==
PROVIDERS: Family Provider Family Medicine; PCP Physician Assistant; Visit Provider Physician Assistant
DX: R73.9 Hyperglycemia, unspecified (principal); S80.12XA Contusion of left lower leg, initial encounter; N18.30 Chronic kidney disease, stage 3 unspecified; E83.52 Hypercalcemia
CPT/HCPCS: 80053; 82310; 83036; 83970; 85025

== ENCOUNTER → 2021-09-09 09:23 | Outpatient (CLI) | payer MEDICARE, OTHER, SELFPAY | PROVIDERS: Family Provider Family Medicine; PCP Physician Assistant; Visit Provider Physician Assistant | DX: N39.0 Urinary tract infection, site not specified (principal) | CPT/HCPCS: 87086 ==

== ENCOUNTER → 2021-11-06 10:34 | Outpatient (CLI) | payer MEDICARE, OTHER, SELFPAY ==
[2021-11-06 19:25] LABS: Cholesterol 120 mg/dL (140-199); HDL Cholesterol 50 mg/dL (40-60); LDL Cholesterol Calculated 54 mg/dL (<100); Triglycerides 80 mg/dL (35-150)
[2021-11-06 19:32] LABS: Alanine Aminotransferase 16 IU/L (<35); Albumin 4.3 g/dL (3.5-5.0); Albumin Globulin Ratio 1.3 (1.0-2.8); Alkaline Phosphatase 54 U/L (38-126); Aspartate Aminotransferase 57 IU/L (14-36); BUN Creatinine Ratio 22.2 (6-22); Bilirubin Total 0.6 mg/dL (0.2-1.3); Blood Urea Nitrogen 24 mg/dL (7-17); Calcium 9.8 mg/dL (8.4-10.2); Carbon Dioxide 30 mmol/L (22-32); Chloride 101 mmol/L (98-107); Estimated Glomerular Filt Rate 51 mL/min (>60); Globulin 3.3 g/dL (1.7-4.1); Glucose 108 mg/dL (80-110); HEMOLYSIS 19 (0-50); Potassium 4.5 mmol/L (3.4-5.1); Sodium 139 mmol/L (137-145); Total Protein 7.6 g/dL (6.3-8.2)
[2021-11-06 19:57] LABS: Thyroid Stimulating Hormone 0.181 uIU/mL (0.47-4.68)
== END ==
PROVIDERS: Family Provider Family Medicine; PCP Physician Assistant; Visit Provider Nurse Practitioner
DX: I10 Essential (primary) hypertension (principal)
CPT/HCPCS: 80053; 80061; 84443

== ENCOUNTER → 2021-11-24 13:04 | Outpatient (CLI) | payer MEDICARE, OTHER, SELFPAY ==
[2021-11-24 20:20] LABS: Alanine Aminotransferase 15 IU/L (<35); Albumin 4.1 g/dL (3.5-5.0); Albumin Globulin Ratio 1.5 (1.0-2.8); Alkaline Phosphatase 60 U/L (38-126); Aspartate Aminotransferase 30 IU/L (14-36); BUN Creatinine Ratio 26.5 (6-22); Bilirubin Total 0.5 mg/dL (0.2-1.3); Blood Urea Nitrogen 30 mg/dL (7-17); Carbon Dioxide 28 mmol/L (22-32); Chloride 101 mmol/L (98-107); Estimated Glomerular Filt Rate 49 mL/min (>60); Globulin 2.7 g/dL (1.7-4.1); Glucose 91 mg/dL (80-110); HEMOLYSIS < 15 (0-50); Potassium 4.6 mmol/L (3.4-5.1); Sodium 135 mmol/L (137-145); Total Protein 6.8 g/dL (6.3-8.2)
[2021-11-24 20:52] LABS: Thyroid Stimulating Hormone 0.029 uIU/mL (0.47-4.68)
== END ==
PROVIDERS: Family Provider Family Medicine; PCP Physician Assistant; Visit Provider Nurse Practitioner
DX: I10 Essential (primary) hypertension (principal)
CPT/HCPCS: 80053; 84443

== ENCOUNTER → 2022-01-20 11:17 | Outpatient (CLI) | payer MEDICARE, OTHER, SELFPAY ==
[2022-01-20 20:03] LABS: Alanine Aminotransferase 12 IU/L (<35); Albumin 3.9 g/dL (3.5-5.0); Albumin Globulin Ratio 1.3 (1.0-2.8); Alkaline Phosphatase 60 U/L (38-126); Aspartate Aminotransferase 27 IU/L (14-36); Bilirubin Total 0.5 mg/dL (0.2-1.3); Blood Urea Nitrogen 22 mg/dL (7-17); Calcium 9.8 mg/dL (8.4-10.2); Carbon Dioxide 27 mmol/L (22-32); Chloride 103 mmol/L (98-107); Estimated Glomerular Filt Rate 56 mL/min (>60); Globulin 3.1 g/dL (1.7-4.1); Glucose 109 mg/dL (80-110); HEMOLYSIS < 15 (0-50); Potassium 4.4 mmol/L (3.4-5.1); Sodium 139 mmol/L (137-145)
[2022-01-20 20:26] LABS: Free T3, Triiodothyronine Free 2.72 pg/mL (2.77-5.27); Free T4, Direct Thyroxine 1.23 ng/dL (0.78-2.19)
[2022-01-20 20:41] LABS: Thyroid Stimulating Hormone 0.187 uIU/mL (0.47-4.68)
== END ==
PROVIDERS: Family Provider Family Medicine; PCP Physician Assistant; Visit Provider Nurse Practitioner
DX: I10 Essential (primary) hypertension (principal); R79.89 Other specified abnormal findings of blood chemistry; N18.31 Chronic kidney disease, stage 3a
CPT/HCPCS: 80053; 84439; 84443; 84481

== ENCOUNTER → 2022-06-18 08:57 | Outpatient (CLI) | payer MEDICARE, OTHER, SELFPAY ==
[2022-06-18 19:14] LABS: Appearance Urine UA SL CLOUDY; Bilirubin Urine UA NEGATIVE (NEGATIVE); Color Urine UA YELLOW; Glucose Urine UA NEGATIVE (Negative); Ketones Urine UA NEGATIVE (NEGATIVE); Leukocyte Esterase Urine UA 2+ (NEGATIVE); Nitrite Urine UA NEGATIVE (Negative); Occult Blood Urine UA NEGATIVE (Negative); Protein Urine UA NEGATIVE (Negative); Urobilinogen Urine UA 0.2 E.U./dL (0.2)
[2022-06-18 19:16] LABS: Add Manual Diff / Slide Review NO; Basophils Absolute Auto 0 /uL (0-100); Basophils Percent Auto 0.8 % (0-2); Eosinophils Absolute Auto 200 /uL (0-450); Eosinophils Percent Auto 3.6 % (2-4); Hematocrit 34.9 % (36-46); Hemoglobin 11.6 g/dL (12.0-16.0); Lymphocytes Absolute Auto 1200 /uL (1100-4500); Lymphocytes Percent Auto 22.4 % (25-40); Mean Corpuscular HGB Conc 33.2 % (30-36); Mean Corpuscular Hemoglobin 30.2 PG (26-34); Monocytes Absolute Auto 500 /uL (0-900); Monocytes Percent Auto 10.1 % (3-14); Neutrophils Absolute Auto 3300 /uL (1500-7000); Neutrophils Percent Auto 63.1 % (50-75); Platelet Count 202 X10^3/uL (150-400); Red Blood Cell Count 3.84 X10^6/uL (4.0-5.2); Red Cell Distribution Width 13.2 % (11.6-14.8); White Blood Cell Count 5.3 X10^3/uL (4.5-11.0)
[2022-06-18 19:28] LABS: Alanine Aminotransferase 15 IU/L (<35); Albumin Globulin Ratio 1.3 (1.0-2.8); Alkaline Phosphatase 61 U/L (38-126); Aspartate Aminotransferase 26 IU/L (14-36); Bilirubin Total 0.6 mg/dL (0.2-1.3); Blood Urea Nitrogen 31 mg/dL (7-17); Calcium 9.9 mg/dL (8.4-10.2); Carbon Dioxide 29 mmol/L (22-32); Chloride 101 mmol/L (98-107); Estimated Glomerular Filt Rate 52 mL/min (>60); Glucose 108 mg/dL (80-110); HEMOLYSIS < 15 (0-50); Potassium 4.8 mmol/L (3.4-5.1); Sodium 138 mmol/L (137-145)
[2022-06-18 19:33] LABS: pH Urine UA 5.5 (4.5-8.0)
[2022-06-18 19:34] LABS: Bacteria Urine Moderate (10-30); Culture Indicated Urine Specimen Cultured; RBC Urine 0-1/HPF (0-5/HPF); Squamous Epithelial Cell Urine 5-10 /HPF (0-5/HPF); Transitional Epi Cells Urine 1-5/HPF (0-5/HPF); WBC Urine 10-30/HPF (0-5/HPF)
[2022-06-18 19:39] LABS: Hemoglobin A1C% w Est Avg Glu 5.7 % (4.0-6.0)
[2022-06-18 20:34] LABS: TSH w/ Reflex to FT4 0.14 uIU/mL (0.47-4.68)
[2022-06-19 07:31] LABS: Free T4, Direct Thyroxine 1.33 ng/dL (0.78-2.19)
== END ==
PROVIDERS: Family Provider Family Medicine; PCP Physician Assistant; Visit Provider Physician Assistant
DX: Z01.818 Encounter for other preprocedural examination (principal); R73.9 Hyperglycemia, unspecified; R53.82 Chronic fatigue, unspecified; D49.9 Neoplasm of unspecified behavior of unspecified site; E05.90 Thyrotoxicosis, unspecified without thyrotoxic crisis or storm; I10 Essential (primary) hypertension; M16.12 Unilateral primary osteoarthritis, left hip
CPT/HCPCS: 80053; 81003; 81015; 83036; 84439; 84443; 85025; 87077; 87086

== ENCOUNTER → 2022-07-06 09:36 | Outpatient (CLI) | payer MEDICARE, OTHER, SELFPAY | PROVIDERS: Family Provider Family Medicine; PCP Physician Assistant; Referring Provider Physician Assistant; Visit Provider Physician Assistant | DX: Z13.820 Encounter for screening for osteoporosis (principal); Z78.0 Asymptomatic menopausal state; N18.31 Chronic kidney disease, stage 3a; E05.90 Thyrotoxicosis, unspecified without thyrotoxic crisis or storm; D64.9 Anemia, unspecified; Z90.710 Acquired absence of both cervix and uterus | CPT/HCPCS: 77080 ==

== ENCOUNTER 2022-08-18 08:29 | Day surgery (SDC) | payer MEDICARE, OTHER, SELFPAY ==
[2022-07-14 09:43] VITALS: BMI 31.7
[2022-08-18] VITALS (10 sets, daily range): BP systolic 116–171; BP diastolic 41–81; PULSE 64–79; RESP 11–19; TEMP 36.1–36.3; O2SAT 97–100; BMI 30.8
--- NOTE | 2022-08-18 06:00 | DI.RAD.S_ITS ---
PROCEDURE: XR PELVIS 1-2V INDICATIONS: inner op TECHNIQUE: Intra-operative view of the pelvis and hip acquired. COMPARISON: [facility], CR, XR HIP W PEL IF DONE LT 2V, 08/18/2022, 13:09. FINDINGS: Bones: Intraoperative devices prior to placement of left hip arthroplasty prostheses are in expected positions. No fractures or suspicious bony lesions. Right hip arthroplasty stable. Soft tissues: Overlying surgical retractors are present, along with other intraoperative changes. IMPRESSION: Expected postsurgical change for left hip arthroplasty. Dictated by: Amber Dorado MD, PhD on 08/18/2022 at 13:31 Approved by: Amber Dorado MD, PhD on 08/18/2022 at 13:31
[2022-08-18] MEDS: MELOXICAM 7.5 MG TABLET 15 MG PO (09:51)
[2022-08-18] MEDS: PREGABALIN 75 MG CAPSULE PO (09:51)
[2022-08-18] MEDS: VANCOMYCIN 1,000 MG/200 ML PIGGYBACK 200 MG IV ×2 (09:51→21:24)
[2022-08-18] MEDS: LACTATED RINGERS 1,000 ML 42 ML IV ×2 (09:51→12:15)
[2022-08-18] MEDS: ACETAMINOPHEN 325 MG TABLET 975 MG PO (09:52)
[2022-08-18 10:16] LABS: COVID19 -Nasal RAPID Negative (Negative)
--- NOTE | 2022-08-18 10:41 | PM.HP.1 ---
History of Present Illness History of Present Illness Date Patient Seen: 08/18/22 Time Patient Seen: 10:41 Chief complaint: OPB severe left hip OA Narrative: She continues to note ongoing left hip pain and crunching. There has been no other change in her history and physical. She has a history of a right total hip arthroplasty several years ago. She did well with her right hip arthroplasty. Her left hip is markedly interfering with his her overall lifestyle and ability to ambulate. [facility] Medical History Aortic stenosis BPPV (benign paroxysmal positional vertigo) Dizzy spells Dyslipidemia Glaucoma Healthy adult HLD (hyperlipidemia) Loss of smell Multiple sclerosis Osteoarthritis Retinal artery branch occlusion of right eye Surgical History History of hysterectomy History of total left knee replacement History of total right hip replacement (2019) History of total right knee replacement Hx of bilateral cataract extraction Hx of foot surgery Hx of hand surgery Hx of tonsillectomy No pertinent past surgical history Social History household members: none Smoking Status: Former smoker alcohol intake: former Meds Home Medications and Allergies Home Medications Medication Instructions Recorded Confirmed Type calcium carbonate 500 mg calcium 1,500 mg PO DAILY ##0 01/21/10 08/18/22 History (1,250 mg) tablet (Calcium 500) aspirin 81 mg tablet,delayed 81 mg PO DAILY 01/17/18 08/18/22 History release cholecalciferol (vitamin D3) 25 1,000 unit PO DAILY 06/16/18 08/18/22 History mcg (1,000 unit) capsule (Vitamin D3) latanoprost 0.005 % eye drops 1 drp ophthalmic (eye) DAILY 06/16/19 08/18/22 History epinephrine 0.3 mg/0.3 mL 0.3 mg (0.3 mL) IM ONCE #1 ea 11/04/20 07/14/22 Rx injection, auto-injector urea 40 % topical cream 1 applic topical BID #85 grams 10/02/21 07/14/22 Rx simvastatin 40 mg tablet See Rx Instructions .Route 02/12/22 07/14/22 Rx .COMPLEX #90 tabs ascorbic acid (vitamin C) 500 mg 500 mg PO DAILY #90 tabs 06/23/22 08/18/22 Rx tablet ferrous sulfate 325 mg (65 mg 325 mg PO DAILY #90 tabs 06/23/22 08/18/22 Rx iron) tablet losartan 25 mg tablet 25 mg PO DAILY 08/18/22 08/18/22 History Allergies Allergy/AdvReac Type Severity Reaction Status Date / Time Penicillins Allergy Intermediate Hives Verified 08/18/22 09:37 adhesive Allergy Unknown Rash Verified 08/18/22 09:37 Sulfa (Sulfonamide Allergy Unknown Hives Verified 08/18/22 09:37 Antibiotics) meperidine [From Demerol] AdvReac Severe Makes me Verified 08/18/22 09:37 like a crazy person morphine AdvReac Severe Vomiting Verified 08/18/22 09:37 Review of Systems Review of Systems Narrative: No recent cough fever respiratory problems cardiac problems she notes she is doing well and has arranged for some help at home. She lives on the [facility]. Her niece will be with her. Exam Vital Signs (past 8 hours): - 08/18/22 09:43 Temperature 97.3 F L Pulse Rate 74 Respiratory Rate 17 Blood Pressure 171/81 H Pulse Oximetry 100 Oxygen Delivery Method Room Air Oxygen Delivery Method Room Air Narrative Exam Narrative: HEENT is benign, lungs clear, cor regular rate and rhythm, alert and oriented appropriate, abdomen obese but benign, left hip skin benign, crepitation with range of motion restricted range of motion significant pain with range of motion, right hip well-healed lateral to posterolateral incision, neurologically intact in bilateral lower extremities, calves soft bilaterally Objective Labs Labs: Laboratory Results - last 24 hr 08/18/22 09:57 SARS-CoV-2 (PCR) Negative x-rays show severe left hip osteoarthritis Assessment & Plan Assessment and plan (1) Osteoarthritis of left hip: Qualifiers: Osteoarthritis type: unspecified Qualified Code(s): M16.12 - Unilateral primary osteoarthritis, left hip Status: Acute (2) CKD (chronic kidney disease) stage 3, GFR 30-59 ml/min: Qualifiers: Chronic kidney disease stage 3 subtype: stage 3a (GFR 45-59) Qualified Code(s): N18.31 - Chronic kidney disease, stage 3a Status: Acute (3) Hypertension: Qualifiers: Hypertension type: primary hypertension Qualified Code(s): I10 - Essential (primary) hypertension Status: Acute Plan I have recommended a left total hip arthroplasty. The procedure alternatives risks and benefits were discussed in detail. Please see previous history and physical for additional details. She clearly has incapacitating left hip pain and has been medically stabilized to the best of our ability for left hip arthroplasty.
--- NOTE | 2022-08-18 10:46 | P.OP_ITS ---
Operative Date/Time/Diagnoses Date of procedure: 08/18/22 Time of procedure: 10:46 Pre-op diagnosis: Severe right hip OA Post-op diagnosis: same Procedure & Clinicians Procedure: Right total hip arthroplasty posterior approach Same procedure as scheduled: Yes Indications: The patient has had progressively worsening right hip pain with radiographic changes consistent with arthritis. Non-operative management has failed and the patient has requested total hip replacement. The risks, benefits and alternatives to surgery were discussed with the patient prior to proceeding. Risks discussed included, but were not limited to, failure to relieve pain, leg length discrepancy, dislocation, stiffness, infection, nerve damage, deep venous thrombosis, pulmonary embolism, stroke, coma, heart attack, permanent paralysis and , as well as the potential need for eventual revision of the prosthetic. Surgeon: Bharati Frye Principal Bioinformatics Specialist: Cartlon Royal Anesthesia Type: General and Spinal Operative Notes Findings: Severe left hip osteoarthritis, adequate stability Closure Type: primary Specimen(s): none sent Prosthetic devices, grafts, tissues, transplants, or devices: Frye and nephew anthology standard offset size 6, 56 mm R3 cup, neutral poly liner, 36 by +0 Oxinium femoral head, one 6.5 mm screw Estimated Blood Loss (mL): 250 Blood products transfused: none Procedure in detail: The patient was seen in the pre-operative area, where the patient identified the left hip as the operative site and this was marked with my initials. The patient received pre-operative antibiotics and was taken to the operating room and placed on the operative table in the right lateral decubitus position after satisfactory anesthesia. A time stamp assembler out was performed. The left leg was prepared from the ankle to the iliac crest with ChloroPrep in the usual fashion and draped through sterile drapes. The hip was approached through an approximately 20 cm incision centered over the greater trochanter and curving gently posteriorly as it went proximally. This was carried sharply to the fascia adonis, which was divided and retracted with a self retaining retractor. The trochanteric bursa was excised with care being taken to avoid the sciatic nerve, which was identified and protected throughout the case. The short external rotators were incised and the capsulomuscular flap was raised and tagged for later repair. The hip was dislocated, and a femoral neck osteotomy performed approximately 15 mm above the lesser trochanter. Retractors were placed around the femur. The canal was opened with a box cutting osteotome, followed by a T handled reamer and a lateralizing reamer. The chili pepper broach was then used, followed by sequential broaching until there was good stability of the broach in the femur. Retractors were placed to expose the acetabulum. The labrum and central soft tissues were removed. Reaming was performed initially going up in 2 mm increments, then 1 mm increments until good bite was obtained with an odd sized reamer. The cup 1 mm larger than the last reamer was then inserted using the appropriate anteversion guides. It was further stabilized with a single screw. A trial neutral liner was placed. The broach was placed in the canal. A trial head and neck were then placed and the hip relocated and checked for leg length and stability. An intraoperative film confirmed the component position and no evidence of fracture. The patient was stable in the position of sleep, of squatting, and could be put through a range of motion with 45 degrees internal rotation without dislocation. At 90 degrees flexion, internal rotation to 70? was possible before dislocation. This was felt to be satisfactory and the appropriate components were opened, and the trials were removed. The acetabular liner was impacted into position. The final stem was then impacted into the prepared femoral canal. A brief Betadine soak was performed while trialing with head options. The hip was meticulously irrigated with normal saline. Finally the femoral head was impacted onto the stem. The acetabulum was cleared of all material and the hip relocated one final time. The capsulomuscular flap was then repaired to the greater trochanter though an awl hole using the tag sutures. The short external rotators were repaired with a nonabsorbable suture. A deep drain was placed and brought out anteriorly. The fascia adonis was closed with Vicryl. The subcutaneous layer was closed with barbed sutures and SteriStrips. An Aquacel Ag dressing was applied and the patient was taken to recovery having tolerated the procedure well. Complications: none Post-operative Condition: stable Disposition: Acute Care Plan for aftercare: The patient will be maintained on a standard total hip replacement protocol with weight bearing as tolerated and posterior hip precautions. The patient will receive Aspirin and sequential compression devices for DVT prophylaxis. The patient will be discharged home when safe for the home environment.
[2022-08-18] MEDS: CLINDAMYCIN 900 MG/50 ML PIGGYBACK 50 MG IV (11:10)
[2022-08-18] MEDS: TRANEXAMIC ACID 1,000 MG VIAL 1000 MG INJ ×2 (11:23→12:43)
--- NOTE | 2022-08-18 11:43 | SUR.OPER ---
Lateral on padded OR bed. Gel axillary roll. Arms secured on padded armboard with pillow supporting top arm. Padded hip positioner braces x4 - anterior and posterior chest and pelvis. Additional gel pad used anterior pelvis. Gel pad under bottom leg from knee to foot and secured with tape over sheet.
[2022-08-18] MEDS: BUPIVACAINE LIPOSOME 266 MG/20 ML VIAL INJ (12:17)
[2022-08-18] MEDS: BUPIVACAINE 0.25% (PF) 60 ML, EPINEPHrine 0.3 MG INJ (12:36)
[2022-08-18] MEDS: SODIUM CHLORIDE IRRIG SOLUTION 250 ML, POVIDONE-IODINE SPONGE STICKS 1 APPLIC IRR (12:37)
--- NOTE | 2022-08-18 13:30 | DI.RAD.S_ITS ---
PROCEDURE: XR HIP W PEL IF DONE LT 2V INDICATIONS: POST OP LEFT TOTAL HIP/POSTERIOR TECHNIQUE: AP pelvis and lateral view of the left hip acquired. COMPARISON: [facility], XR HIP W PEL IF DONE LT 2V, 09/01/2021, 12:03. FINDINGS: Bones: Patient is status post left hip arthroplasty, with hardware components in expected positions. The hip joint appears congruent. The visualized bony structures appear intact. Right hip arthroplasty stable compared to prior exam. Soft tissues: Overlying postoperative changes are noted. No suspicious soft tissue densities. IMPRESSION: Expected postsurgical change for left hip arthroplasty. Dictated by: Amber Dorado MD, PhD on 08/18/2022 at 14:38 Approved by: Amber Dorado MD, PhD on 08/18/2022 at 14:38
--- NOTE | 2022-08-18 13:48 | P.OP_ITS ---
Operative Date/Time/Diagnoses Date of procedure: 08/18/22 Time of procedure: 14:10 Pre-op diagnosis: Left hip OA severe Post-op diagnosis: same Procedure & Clinicians Procedure: Left total hip arthroplasty posterior approach Same procedure as scheduled: Yes Indications: The patient has had progressively worsening left hip pain with radiographic changes consistent with arthritis. Non-operative management has failed and the patient has requested total hip replacement. The risks, benefits and alternatives to surgery were discussed with the patient prior to proceeding. Risks discussed included, but were not limited to, failure to relieve pain, leg length discrepancy, dislocation, stiffness, infection, nerve damage, deep venous thrombosis, pulmonary embolism, stroke, coma, heart attack, permanent paralysis and , as well as the potential need for eventual revision of the prosthetic. Surgeon: Bharati Frye Precision Lens Grinder Apprentice: Carlton Royal Anesthesia Type: General and Spinal Operative Notes Findings: Severe left hip osteoarthritis, adequate stability, hard bone Closure Type: primary Specimen(s): none sent Prosthetic devices, grafts, tissues, transplants, or devices: Frye [employer] nephew anthology a size 4 standard offset, neutral poly liner, size 50 R3 cup, 32 x 50 neutral poly liner, 32 x -3 cobalt chrome femoral head, one 6.5 mm screw Estimated Blood Loss (mL): 250 Blood products transfused: none Procedure in detail: The patient was seen in the pre-operative area, where the patient identified the left hip as the operative site and this was marked with my initials. The patient received pre-operative antibiotics and was taken to the operating room and placed on the operative table in the right lateral decubitus position after satisfactory anesthesia. A time study technician out was performed. The left leg was prepared from the ankle to the iliac crest with ChloroPrep in the usual fashion and draped through sterile drapes. The hip was approached through an approximately 20 cm incision centered over the greater trochanter and curving gently posteriorly as it went proximally. This was carried sharply to the fascia adonis, which was divided and retracted with a self retaining retractor. The trochanteric bursa was excised with care being taken to avoid the sciatic nerve, which was identified and protected throughout the case. The short external rotators were incised and the capsulomuscular flap was raised and tagged for later repair. The hip was dislocated, and a femoral neck osteotomy performed approximately 15 mm above the lesser trochanter. Retractors were placed around the femur. The canal was opened with a box cutting osteotome, followed by a T handled reamer and a lateralizing reamer. The chili pepper broach was then used, followed by sequential broaching until there was good stability of the broach in the femur. Retractors were placed to expose the acetabulum. The labrum and central soft tissues were removed. Reaming was performed initially going up in 2 mm increment s, then 1 mm increments until good bite was obtained with an odd sized reamer. The cup 1 mm larger than the last reamer was then inserted using the appropriate anteversion guides. It was further stabilized with a single screw. A trial neutral liner was placed. The broach was placed in the canal. A trial head and neck were then placed and the hip relocated and checked for leg length and stability. An intraoperative film confirmed the component position and no evidence of fracture. The patient was stable in the position of sleep, of squatting, and could be put through a range of motion with 45 degrees internal rotation without dislocation. At 90 degrees flexion, internal rotation to 70? was possible before dislocation. This was felt to be satisfactory and the appropriate components were opened, and the trials were removed. The acetabular liner was impacted into position. The final stem was then impacted into the prepared femoral canal. A brief Betadine soak was performed while trialing with head options. The hip was meticulously irrigated with normal saline. Finally the femoral head was impacted onto the stem. The acetabulum was cleared of all material and the hip relocated one final time. The capsulomuscular flap was then repaired to the greater trochanter though an awl hole using the tag sutures. The short external rotators were repaired with a nonabsorbable suture. A deep drain was placed and brought out anteriorly. The fascia adonis was closed with Vicryl. The subcutaneous layer was closed with barbed sutures and SteriStrips. An Aquacel Ag dressing was applied and the patient was taken to recovery having tolerated the procedure well. Complications: none Post-operative Condition: stable Disposition: Acute Care Plan for aftercare: The patient will be maintained on a standard total hip replacement protocol with weight bearing as tolerated and posterior hip precautions. The patient will receive Aspirin and sequential compression devices for DVT prophylaxis. The patient will be discharged home when safe for the home environment.
[2022-08-18] MEDS: LACTATED RINGERS 1,000 ML 100 ML IV (14:48)
--- NOTE | 2022-08-18 15:53 | PT-IP ANOTE ---
Attempted to see patient for initial PT eval post-op. Pt still feeling effects from nerve block, has absolutely zero motor contraction in entire left leg, toe wiggle on right. Not safe to perform any mobility at this time, will check again either later this afternoon to tomorrow morning. Pt reports understanding.
--- NOTE | 2022-08-18 16:11 | PC.NURSE ---
Pt alert and oriented though a bit woozy. Offers no c/o. Initially couldn't move toes knees or legs. Had slight feeling lateral aspect of right leg above the knee. As afternoon has progress Pt has been able to move toes right side and a little on left. Son now at bedside. Pt's dressing is cdi.
[2022-08-18] MEDS: IBUPROFEN 400 MG TABLET PO (17:41)
[2022-08-18] MEDS: ASPIRIN EC 81 MG TABLET PO (20:09)
[2022-08-18] MEDS: DOCUSATE 100 MG CAPSULE PO (20:09)
[2022-08-18] MEDS: LATANOPROST 0.005% OPHTH 2.5 ML 1 DROPS EYE-BOTH (20:13)
[2022-08-19 00:17] VITALS: BP 114/54; PULSE 65; RESP 18; TEMP 36.1; O2SAT 95
[2022-08-19] MEDS: LACTATED RINGERS 1,000 ML 100 ML IV (01:54)
[2022-08-19 06:19] LABS: Hematocrit 32.2 % (36-46); Hemoglobin 10.9 g/dL (12.0-16.0)
--- NOTE | 2022-08-19 06:54 | P.DS_ITS ---
History of Present Illness History of Present Illness Date Patient Seen: 08/19/22 Time Patient Seen: 06:54 Chief complaint: OPB severe left hip OA Narrative: Operative Date/Time/Diagnoses Date of procedure: 08/18/22 Time of procedure: 14:10 Pre-op diagnosis: Left hip OA severe Post-op diagnosis: same Procedure & Clinicians Procedure: Left total hip arthroplasty posterior approach Same procedure as scheduled: Yes Indications: The patient has had progressively worsening left hip pain with radiographic changes consistent with arthritis. Non-operative management has failed and the patient has requested total hip replacement. The risks, benefits and alternatives to surgery were discussed with the patient prior to proceeding. Risks discussed included, but were not limited to, failure to relieve pain, leg length discrepancy, dislocation, stiffness, infection, nerve damage, deep venous thrombosis, pulmonary embolism, stroke, coma, heart attack, permanent paralysis and , as well as the potential need for eventual revision of the prosthetic. Surgeon: Bahrati Frye Milled Lumber Grader: Carlton Royal Anesthesia Type: General and Spinal Operative Notes Findings: Severe left hip osteoarthritis, adequate stability, hard bone Closure Type: primary Specimen(s): none sent Prosthetic devices, grafts, tissues, transplants, or devices: Frye and nephew anthology a size 4 standard offset, neutral poly liner, size 50 R3 cup, 32 x 50 neutral poly liner, 32 x -3 cobalt chrome femoral head, one 6.5 mm screw Estimated Blood Loss (mL): 250 Blood products transfused: none Discharge Providers Provider Discharge Date: 08/19/22 Primary care physician: Chandni Du PA-C Consults: 08/18/22 06:00 Consult to Anesthesiology Routine Comment: Consulting Provider: Anesthesiologist Reason for consultation: Regional block for post operative pain control 08/18/22 13:57 Consult to Discharge Planning Routine Comment: Consult to Physical Therapy Evaluate & Treat Comment: Physician Instructions: post op MARK protocol Discharge provider: Kailey Bill PA-C Summary Hospital Course Discharge Diagnosis: Left hip osteoarthritis, s/p left total hip arthroplasty Hospital Course: Ms Ricardo'casa hospital course was unremarkable. On the morning of POD# 1, she was feeling well and wanted to go home; she said she needed to be at the [facility] by 1430. She was eating and voiding without difficulty, and her pain w as well-controlled with oral medications. She does not like to take narcotics but was willing to be discharged with a small amount of oxycodone. She had not yet been evaluated by PT at the time of my visit. Exam Vital Signs (past 8 hours): - 08/19/22 00:17 Temperature 97.0 F L Pulse Rate 65 Respiratory Rate 18 Blood Pressure 114/54 L Pulse Oximetry 95 Oxygen Flow Rate 0 Oxygen Delivery Method Room Air Oxygen Flow Rate 0 Narrative Exam Narrative: 5/5 strength in hip flexors, quadriceps, hamstrings, DF, PF, EHL on left. Sensation to light touch intact throughout LLE. Calves soft, compressible, nontender and without palpable cords or masses. Aquacel dressing CDI. Post op H/H low, but not significantly lower than previous levels in June. Losartan held d/t low BP. Objective Labs 08/19/22 05:37 Labs: Laboratory Results - last 24 hr 08/18/22 08/19/22 09:57 05:37 Hgb 10.9 L Hct 32.2 L SARS-CoV-2 (PCR) Negative [facility] Medical History Aortic stenosis BPPV (benign paroxysmal positional vertigo) Dizzy spells Dyslipidemia Glaucoma Healthy adult HLD (hyperlipidemia) Loss of smell Multiple sclerosis Osteoarthritis Retinal artery branch occlusion of right eye Surgical History History of hysterectomy History of total left knee replacement History of total right hip replacement (2019) History of total right knee replacement Hx of bilateral cataract extraction Hx of foot surgery Hx of hand surgery Hx of tonsillectomy No pertinent past surgical history Social History household members: none Smoking Status: Former smoker alcohol intake: former Discharge Assessment & Plan Assessment and Plan Assessment: Left hip osteoarthritis, s/p left total hip arthroplasty Acute on chronic anemia d/t expected surgical blood loss Plan of Treatment: Discharge home after PT if PT feels she is safe and stable. ASA 81 mg BID x 6 weeks for VTE prophylaxis. Outpt PT, f/u in office in 2 weeks. Will send oxycodone for pain control if needed. Restart Losartan on 08/21/2022. Discharge Plan Discharge Plan Patient Disposition: Home Discharge orders & Medications Discharge Orders: Discharge (Order); Ordered 08/19/22 Ordered By: Kailey Bill Prescriptions: New aspirin 81 mg Tablet,Delayed Release (Dr/Ec) 81 mg PO BID Qty: 1 0RF Rx Instructions: One tab twice a day for 6 weeks after surgery oxycodone 5 mg Tablet 5 mg PO Q4-6H PRN (Reason: Pain, Moderate (4-6)) Qty: 14 0RF Continued calcium carbonate [Calcium 500] 500 mg calcium (1,250 mg) Tablet 1,500 mg PO DAILY Qty: 0 simvastatin 40 mg tablet See Rx Instructions .ROUTE .COMPLEX Qty: 90 3RF Dose Instruction: TAKE ONE TABLET BY MOUTH EVERY DAY Rx Instructions: TAKE ONE TABLET BY MOUTH EVERY DAY ascorbic acid (vitamin C) 500 mg tablet 500 mg PO DAILY Qty: 90 0RF Rx Instructions: Take with iron ferrous sulfate 325 mg (65 mg iron) tablet 325 mg PO DAILY Qty: 90 0RF Rx Instructions: Take with Vitamin C latanoprost 0.005 % drops 1 drp ophthalmic (eye) DAILY losartan 25 mg Tablet 25 mg PO DAILY cholecalciferol (vitamin D3) [Vitamin D3] 1,000 unit Capsule 1,000 unit PO DAILY epinephrine 0.3 mg/0.3 mL auto-injector 0.3 mg IM ONCE Qty: 1 0RF Rx Instructions: as a single dose Discontinued aspirin 81 mg Tablet,Delayed Release (Dr/Ec) 81 mg PO DAILY Follow up/Referrals: Chandni Du PA-C [Primary Care Provider] - Diet/Activity/Treatments Diet: Diet as Tolerated Activity: Weightbearing as tolerated on LLE. Posterior hip precautions. Skin/Wound/Dressing Care Report to your healthcare provider any signs of infection, such as:: chills, fever, night sweats, unusual drainage and unusual redness Dressing: May shower. Leave dressing in place until follow up in office. No bathing or otherwise soaking incision. Call the office if the dressing becomes saturated inside. Visit Report/Discharge Packet Instructions: DI for Hip Replacement Stand Alone Forms: Patient Portal/API, Surgery Discharge Discharge Data Primary Care Provider: Chandni Du Attending Provider: Bharati Frye
[2022-08-19 08:00] VITALS: BP 123/50; PULSE 70; RESP 16; O2SAT 100
[2022-08-19] MEDS: CALCIUM CARBONATE 500 MG TAB 1500 MG PO (08:32)
[2022-08-19] MEDS: ASPIRIN EC 81 MG TABLET PO (08:32)
[2022-08-19] MEDS: CHOLECALCIFEROL (VITAMIN D3) 1,000 UNIT TABLET 1000 UNIT PO (08:32)
[2022-08-19] MEDS: IBUPROFEN 400 MG TABLET PO ×2 (08:32→13:52)
[2022-08-19] MEDS: FERROUS SULFATE 325 MG TABLET PO (08:32)
[2022-08-19] MEDS: DOCUSATE 100 MG CAPSULE PO (08:32)
[2022-08-19] MEDS: ACETAMINOPHEN 325 MG TABLET 650 MG PO ×2 (08:33→13:52)
[2022-08-19] MEDS: ASCORBIC ACID 500 MG TABLET PO (08:38)
--- NOTE | 2022-08-19 09:44 | PT.IIE ---
Current Diagnoses Essential (primary) hypertension (08/18/22) Unilateral primary osteoarthritis, left hip (08/18/22) Chronic kidney disease, stage 3a (08/18/22) Presence of unspecified artificial hip joint (08/18/22) Surgery Performed Operation Date: 08/18/22 10:45 Actual Procedures p Total Hip Arthroplasty(Left) - Bharati Frye MD Surgical History (Last Reviewed 08/18/22 @ 10:42 by Bharati Frye MD) History of hysterectomy History of total left knee replacement History of total right hip replacement (2019) History of total right knee replacement Hx of bilateral cataract extraction Hx of foot surgery Hx of hand surgery Hx of tonsillectomy No pertinent past surgical history Medical History (Last Reviewed 08/18/22 @ 10:42 by Bharati Frye MD) Aortic stenosis BPPV (benign paroxysmal positional vertigo) Dizzy spells Dyslipidemia Glaucoma Healthy adult HLD (hyperlipidemia) Loss of smell Multiple sclerosis Osteoarthritis Retinal artery branch occlusion of right eye Physical Therapy Inpatient Evaluation/Re-Eval M1 PT/OT-IP Prior Functional Status Start: 08/19/22 09:25 Freq: NEEDED Status: Active Protocol: Document 08/19/22 09:26 TH (Rec: 08/19/22 09:44 TH [id number]) Medical Review Prior Functional Status Medical History Reviewed Yes: MS, Anemia Recent post. approach MARK. Activities of Daily Living and IADL's IND Prior Functional Level (Other details) IND Social History Household Members none Living Arrangements House Number of Floors (Floors) One Floor Number of Stairs To Enter/Railing? 1 platform step, 1 standard step with rail Home Environment Standard Height Toilet Home Equipment Front Wheel Walker,Raised Toilet Seat w/Armrests,Shower Seat with Backrest Additional Social History Comment Pt will have family/friends assisting M2 PT-IP Current Condition Start: 08/19/22 09:25 Freq: NEEDED Status: Active Protocol: Document 08/19/22 09:26 TH (Rec: 08/19/22 09:44 TH [id number]) Physical Therapy Current Condition Current Condition Evaluation Date 08/19/22 M3 PT-IP Subjective Start: 08/19/22 09:25 Freq: NEEDED Status: Active Protocol: Document 08/19/22 09:26 TH (Rec: 08/19/22 09:44 TH [id number]) Subjective Physical Therapy Visit Type Type Initial Evaluation Visit Start Time 08:30 Visit Stop Time 09:00 Total Visit Minutes 30 Number of COMPRESSION MOLDING MACHINE SETTER Visits 0 Physical Therapy Visit Comments Patient Comments Pt up in chair eating breakfast Therapy Pain Assessment Pain When Pain Assessed During Mobility Pain Present Pain Present Pain Reported Location Back Intensity 5 Scale Used Numeric (0 - 10) Description With Movement Pain Management Techniques Timing of Activity with Medications M4 PT-IP Mobility and Gait Start: 08/19/22 09:25 Freq: NEEDED Status: Active Protocol: Document 08/19/22:26 (Rec: 08/19/22 09:44 [id number]) PT-Bed Mobility Assessment Scooting Scooting to Edge of Bed Standby Assistance PT-Transfer Assessment Sit to and From Stand Sit to and from Stand Contact Guard Assistance Comments Mobility Comments Pt given cues to maintain precautions Gait Assessment Gait Gait Assistance Required: Contact Guard Assist Distance (Feet) 30 Able to Maintain Weight Bearing Status Yes During Gait Assistive Devices Assistive Device Gait Belt,Front Wheeled Walker Gait Deviations General Gait Pattern Within Normal Limits Factors Limiting Gait Function Factors Limiting Gait Function Pain Comments Gait Comments Cues given to maintain precautions especially with turning left Stair Climbing Assessment Evaluation Level of Assist On Stairs Standby Assistance Devices Stair Climbing Assistive Devices Left Railing,Right Railing Technique/Endurance Stair Climbing Direction Descend Stair Climbing Technique Step to Step Number of Steps Climbed 3 Query Text: Stair Climbing Set # Repetitions (reps) 1 Comments Stair Climbing Comments Cues for proper method PT-Balance Assessment Sitting Balance and Reactions Static Sitting Balance Ability Normal Dynamic Sitting Balance Ability Normal Standing Balance and Reactions Static Standing Balance Ability Normal Dynamic Standing Balance Ability Good M5 PT-IP Objective Assessments Start: 08/19/22 09:25 Freq: NEEDED Status: Active Protocol: Document 08/19/22 09:26 TH (Rec: 08/19/22 09:44 [id number]) Orientation Orientation/Cognition Level of Alertness Alert Orientation Name,Place,Situation Gross Range of Motion Upper Extremity ROM Assessment Within Functional Limits Lower Extremity ROM Assessment Left Impaired Strength Upper Extremity Strength Assessment Within Functional Limits Lower Extremity Strength Assessment Left Impaired M6 PT-IP Treatment Start: 08/19/22 09:25 Freq: NEEDED Status: Active Protocol: Document 08/19/22 09:26 (Rec: 08/19/22 09:44 TH [id number]) Physical Therapy Treatment Exercises Exercises Ankle Pumps Education Education Provided Precautions,Post-Op Packet Other Treatments Other Treatment Performed Discussed post. MARK precautions in depth M7 PT-IP Assessment and Plan Start: 08/19/22 09:25 Freq: NEEDED Status: Active Protocol: Document 08/19/22 09:26 TH (Rec: 08/19/22 09:44 TH [id number]) PT Summary Assessment and Plan Potential Rehabilitation Potential Excellent Status of Condition at Evaluation Stable Summary Impairments Pain,Activity Tolerance Assessment Summary Pt presenst wioth post op pain , weakness and decreased endurance. Pt has done well with ambulating/stairs and will benefit from one more Pt session before dc to review precautions. Pt states she will have famly at home to assist and she currently has all necessary equipment ( OT equip. not assessed). Goals Bed Mobility Goal Standby Assistance Transfer Goal Contact Guard Assistance Gait Goal Standby Assistance Gait Distance 100 + feet Days to Meet Goals 4 Frequency of Treatment Frequency Of Treatment Twice a Day Treatment Plan Physical Therapy Treatment Plan Bed Mobility Training,Transfer Training,Gait Training, Therapeutic Exercise Other Recommendations and Next Treatment Stairtraining Focus Precautions Posterior Hip Precautions No Hip Flexion > 90 degrees,No Hip Internal Rotation,No Hip Adduction Recommendations To Nursing Amount of Assist Needed Standby Assistance Discharge Recommendations PT Discharge Recommendations Home with Assistance Transportation Needs at Discharge Private Vehicle
--- NOTE | 2022-08-19 11:50 | PT.IPTN ---
Current Diagnoses Essential (primary) hypertension (08/18/22) Unilateral primary osteoarthritis, left hip (08/18/22) Chronic kidney disease, stage 3a (08/18/22) Presence of unspecified artificial hip joint (08/18/22) Surgery Performed Operation Date: 08/18/22 10:45 Actual Procedures p Total Hip Arthroplasty(Left) - Bharati Frye MD Physical Therapy Treatment Note M2 PT-IP Current Condition Start: 08/19/22 09:25 Freq: NEEDED Status: Active Protocol: Document 08/19/22 09:26 TH (Rec: 08/19/22 09:44 TH [id number]) Physical Therapy Current Condition Current Condition Evaluation Date 08/19/22 M3 PT-IP Subjective Start: 08/19/22 09:25 Freq: NEEDED Status: Active Protocol: Document 08/19/22 12:45 TS (Rec: 08/19/22 12:57 TS [id number]) Subjective Physical Therapy Visit Type Type Treatment Note Visit Start Time 11:50 Visit Stop Time 12:30 Total Visit Minutes 40 Number of REGISTERED PHARMACY TECHNICIAN Visits 1 Physical Therapy Visit Comments Patient Comments Pt hoping to be d/c soon with niece, agreeable to PT session . M4 PT-IP Mobility and Gait Start: 08/19/22 09:25 Freq: NEEDED Status: Active Protocol: Document 08/19/22 12:45 TS (Rec: 08/19/22 12:57 TS [id number]) PT-Transfer Assessment Sit to and From Stand Sit to and from Stand Standby Assistance Equipment Transfer Assistive Device Gait Belt,Front Wheeled Walker Comments Mobility Comments Pt found resting in chair, agreeable to PT session. Pt recalled 1/3 precautions at start of session. Pt performed sit to stand SBA with cues for BUE support from chair and maintaining hip flexion precaution. She ambulated out into hallway ~75' SBA with cautious step to gait, no signs of buckling or LOB. She performed stairs x6 SBA with BUE handrail assist, provided cues for stair sequencing. Pt performed stand to sit in chair SBA with cues for eccentric control and hip precautions. Provided education to pt on bed exercises for home and her post-op packet. Pt was left in bed side chair with call light nearby, lunch and all needs met. Gait Assessment Gait Gait Assistance Required: Standby Assistance Distance (Feet) 75 Able to Maintain Weight Bearing Status Yes During Gait Assistive Devices Assistive Device Gait Belt,Front Wheeled Walker Gait Deviations General Gait Pattern Antalgic,Decreased Stride Length,Decreased Feet Clearance,Step-to Gait Factors Limiting Gait Function Factors Limiting Gait Function Pain Comments Gait Comments Pt ambulated into hallway ~75' SBA with step to gait pattern , no signs of buckling or LOB. Stair Climbing Assessment Evaluation Level of Assist On Stairs Standby Assistance Devices Stair Climbing Assistive Devices Left Railing,Right Railing Technique/Endurance Stair Climbing Direction Descend Stair Climbing Technique Step to Step Number of Steps Climbed 6 Comments Stair Climbing Comments See mobility comments. PT-Balance Assessment Sitting Balance and Reactions Static Sitting Balance Ability Normal Dynamic Sitting Balance Ability Normal Standing Balance and Reactions Static Standing Balance Ability Normal Dynamic Standing Balance Ability Good M5 PT-IP Objective Assessments Start: 08/19/22 09:25 Freq: NEEDED Status: Active Protocol: Document 08/19/22 09:26 TH (Rec: 08/19/22 09:44 TH [id number]) Orientation Orientation/Cognition Level of Alertness Alert Orientation Name,Place,Situation Gross Range of Motion Upper Extremity ROM Assessment Within Functional Limits Lower Extremity ROM Assessment Left Impaired Strength Upper Extremity Strength Assessment Within Functional Limits Lower Extremity Strength Assessment Left Impaired M6 PT-IP Treatment Start: 08/19/22 09:25 Freq: NEEDED Status: Active Protocol: Document 08/19/22 12:45 TS (Rec: 08/19/22 12:57 TS [id number]) Physical Therapy Treatment Exercises Exercises Ankle Pumps,Gluteal Sets,Quad Sets,Heel Slides Education Education Provided Precautions,Post-Op Packet Other Treatments Other Treatment Performed Educated pt on hip precautions , she recalled 1/3 and post-op bed exercises. M7 PT-IP Assessment and Plan Start: 08/19/22 09:25 Freq: NEEDED Status: Active Protocol: Document 08/19/22 12:45 TS (Rec: 08/19/22 12:57 TS [id number]) PT Summary Assessment and Plan Potential Rehabilitation Potential Excellent Status of Condition at Evaluation Stable Summary Impairments Pain,Activity Tolerance Assessment Summary Pt progressed her ambulation to ~75' SBA with cautious step to gait. She performed stairs x6 SBA with hahndrail assist, no LOB. Pt recalled 1/3 precautions this session, provided education on the importance of knowing precautions. Educated pt on post-op bed exercises provided in post-op packet. PT is recommending home with assist from her niece. Her niece is a nurse and will be helping her with her needs at home. Goals Bed Mobility Goal Standby Assistance Transfer Goal Contact Guard Assistance Gait Goal Standby Assistance Gait Distance 100 + feet Days to Meet Goals 4 Frequency of Treatment Frequency Of Treatment Twice a Day Treatment Plan Physical Therapy Treatment Plan Bed Mobility Training,Transfer Training,Gait Training, Therapeutic Exercise Other Recommendations and Next Treatment Stairtraining Focus Precautions Posterior Hip Precautions No Hip Flexion > 90 degrees,No Hip Internal Rotation,No Hip Adduction Recommendations To Nursing Amount of Assist Needed Standby Assistance,1 Person Assist Discharge Recommendations PT Discharge Recommendations Home with Assistance Transportation Needs at Discharge Private Vehicle
--- NOTE | 2022-08-19 12:52 | CM.DANOTE ---
Initial DCP Assessment Note Pt is an 82 yo female, resident of [facility] now POD#1 from Left hip surgery by Dr Frye PCP: Chandni Du Payer: IGOR/Kenan Reviewed chart, met w/patient to discuss DCP; patient lives alone and relies on a very supportive [employer] group to assist as needed w/errands, meals and transport Patient plans to discharge home w/assist from her niece and asks if she can have services. Discussed [facility]- the only agency serving [facility] and patient agreeable and appreciative for the visit PT has cleared patient for this plan LARY Melgoza, has kindly agreed to send referral to [facility] requesting HH RN/PT/OT/CRANE MECHANIC, F2F and HH order have been completed Plan: Discharge home today w/family and [facility] services ADRIEL Orantes Discharge Planning/Care Management CM Discharge Assessment Start: 08/19/22 12:45 Freq: Status: Active Protocol: Document 08/19/22 12:45 JUSTICE (Rec: 08/19/22 12:52 JUSTICE [id number]) Discharge Planning Assessment Assigned Gravity Prospecting Operator Helper ADRIEL Sykes DPOA/Assigned Designee Name kartik Conde Contact Information [phone] Advance Directives? Yes Advance Directives on File No History Provided By Patient,Medical Record Prior Living Arrangements House Household Members none Type of transporation used prior to Relies on Others admit Independent with ADL's Yes Is patient alert and oriented? Yes Needs Assistance With Home Chores / Shopping Patient/Family Preference Home with Home Health Barriers to Discharge No Comment Home w/niece today w/ [facility] referral made, patient eager to return home to [facility] Discharge Plan Home with Home Health Transportation Arrangement Family Referrals Initiated Home Health Additional Comment LARY Melgoza, kindly agreed to fax referral to [facility]
--- NOTE | 2022-08-19 15:43 | PC.NURSE ---
PT is A&OX4, VSS, afebrile on RA. She reports pain to L hip is tolerable and minimal at 1/10. She reports pain is well controlled with just scheduled tylenol and ibuprofen. She is cleared for discharge this afternoon after working with HEAD WAITER. She verbalizes understanding of medications, activity limitations, site care, s/sx of complication/infection as well as follow up appoinment post operatively pre scheduled. She is escorted via w/ch with all of her belongings including FWW, priority boarding pass for ferry as well as overnight bag. She is picked up in a private vehicle by her kun Schwartz, for transportation home this afteroon on [address] scheduled ferry to [facility].
== END 2022-08-19 15:00 | disposition home or self-care (01) ==
LOC: OR 08:31 → AC 08:33
PROVIDERS: Family Provider Family Medicine; PCP Physician Assistant; Referring Provider Orthopaedic Surgery; Visit Provider Orthopaedic Surgery
PROC: 0SRB0JZ Replacement of Left Hip Joint with Synthetic Substitute, Open Approach (ICD-10-PCS; CPT 27130; principal; 2022-08-18 10:45)
DX: M16.12 Unilateral primary osteoarthritis, left hip (principal); I12.9 Hypertensive chronic kidney disease with stage 1 through stage 4 chronic kidney disease, or unspecified chronic kidney disease; N18.31 Chronic kidney disease, stage 3a; Z96.641 Presence of right artificial hip joint
CPT/HCPCS: 27130; 36415; 72170; 73502; 85014; 85018; 87635; 97116; 97161; 97530; C1776; C9803; C9290; J0171; J1100; J2250; J2405; J2704; J3010

== ENCOUNTER → 2022-11-23 11:30 | Outpatient (CLI) | payer MEDICARE, OTHER, SELFPAY ==
[2022-08-18 08:37] VITALS: BMI 30.8
[2022-11-23 19:44] LABS: Add Manual Diff / Slide Review NO; Basophils Absolute Auto 100 /uL (0-100); Basophils Percent Auto 1.1 % (0-2); Eosinophils Absolute Auto 200 /uL (0-450); Eosinophils Percent Auto 3.3 % (2-4); Hematocrit 37.2 % (36-46); Hemoglobin 12.5 g/dL (12.0-16.0); Lymphocytes Absolute Auto 1700 /uL (1100-4500); Mean Corpuscular HGB Conc 33.7 % (30-36); Mean Corpuscular Hemoglobin 30.5 PG (26-34); Mean Corpuscular Volume 90.7 fL (80-100); Monocytes Absolute Auto 600 /uL (0-900); Monocytes Percent Auto 10.9 % (3-14); Neutrophils Absolute Auto 3000 /uL (1500-7000); Neutrophils Percent Auto 53.7 % (50-75); Platelet Count 198 X10^3/uL (150-400); Red Cell Distribution Width 12.5 % (11.6-14.8); White Blood Cell Count 5.6 X10^3/uL (4.5-11.0)
[2022-11-23 19:54] LABS: Alanine Aminotransferase 16 IU/L (<35); Albumin 4.3 g/dL (3.5-5.0); Albumin Globulin Ratio 1.4 (1.0-2.8); Alkaline Phosphatase 66 U/L (38-126); Aspartate Aminotransferase 30 IU/L (14-36); BUN Creatinine Ratio 25.6 (6-22); Bilirubin Total 0.5 mg/dL (0.2-1.3); Blood Urea Nitrogen 32 mg/dL (7-17); Calcium 10.1 mg/dL (8.4-10.2); Carbon Dioxide 30 mmol/L (22-32); Chloride 101 mmol/L (98-107); Estimated Glomerular Filt Rate 43 mL/min (>60); Globulin 3.1 g/dL (1.7-4.1); Glucose 96 mg/dL (80-110); HEMOLYSIS < 15 (0-50); Potassium 4.6 mmol/L (3.4-5.1); Sodium 139 mmol/L (137-145); Total Protein 7.4 g/dL (6.3-8.2)
[2022-11-23 20:24] LABS: TSH w/ Reflex to FT4 1.36 uIU/mL (0.47-4.68)
[2022-11-23 20:28] LABS: Ferritin 165 ng/mL (11-264)
== END ==
PROVIDERS: Family Provider Family Medicine; PCP Physician Assistant; Visit Provider Physician Assistant
DX: R53.82 Chronic fatigue, unspecified (principal); D49.9 Neoplasm of unspecified behavior of unspecified site; D64.9 Anemia, unspecified; E05.90 Thyrotoxicosis, unspecified without thyrotoxic crisis or storm; N18.31 Chronic kidney disease, stage 3a
CPT/HCPCS: 80053; 82728; 84443; 85025

== ENCOUNTER → 2022-12-24 11:05 | Outpatient (CLI) | payer MEDICARE, OTHER, SELFPAY ==
[2022-08-18 08:37] VITALS: BMI 30.8
[2022-12-24 19:54] LABS: Alanine Aminotransferase 17 IU/L (<35); Albumin 4.1 g/dL (3.5-5.0); Albumin Globulin Ratio 1.3 (1.0-2.8); Alkaline Phosphatase 59 U/L (38-126); Aspartate Aminotransferase 34 IU/L (14-36); BUN Creatinine Ratio 22.6 (6-22); Bilirubin Total 0.6 mg/dL (0.2-1.3); Blood Urea Nitrogen 26 mg/dL (7-17); Calcium 10.2 mg/dL (8.4-10.2); Carbon Dioxide 31 mmol/L (22-32); Chloride 99 mmol/L (98-107); Estimated Glomerular Filt Rate 47 mL/min (>60); Globulin 3.2 g/dL (1.7-4.1); Glucose 91 mg/dL (80-110); HEMOLYSIS < 15 (0-50); Potassium 4.5 mmol/L (3.4-5.1); Sodium 134 mmol/L (137-145); Total Protein 7.3 g/dL (6.3-8.2)
== END ==
PROVIDERS: Family Provider Family Medicine; PCP Physician Assistant; Visit Provider Physician Assistant
DX: N18.9 Chronic kidney disease, unspecified (principal); L08.1 Erythrasma
CPT/HCPCS: 80053

== ENCOUNTER → 2023-03-11 08:51 | Outpatient (CLI) | payer MEDICARE, OTHER, SELFPAY ==
[2022-08-18 08:37] VITALS: BMI 30.8
== END ==
PROVIDERS: Family Provider Family Medicine; PCP Physician Assistant Medical; Visit Provider Physician Assistant Medical
DX: N39.0 Urinary tract infection, site not specified (principal)
CPT/HCPCS: 87077; 87086; 87186

== ENCOUNTER → 2023-03-16 10:50 | Outpatient (CLI) | payer MEDICARE, OTHER, SELFPAY ==
[2022-08-18 08:37] VITALS: BMI 30.8
--- NOTE | 2023-03-16 10:51 | DI.US.S_ITS ---
PROCEDURE: US RENAL COMPLETE INDICATIONS: HISTORY OF CHRONIC KIDNEY DISEASE TECHNIQUE: Real-time scanning was performed of the kidneys and bladder, with image documentation. COMPARISON: None. FINDINGS: Kidneys: Kidneys are normal in size. Right kidney measures 11.2 cm long; left kidney measures 9.6 cm long. Right renal cortical thickness is 1.8 cm; left renal cortical thickness is 1.5 cm. Renal cortical echotexture is normal. No suspicious solid mass lesions. There are bilateral renal calculi present. If further evaluation is clinically indicated noncontrast CT of the abdomen and pelvis may be of further clinical value. There are multiple simple cysts involving both kidneys. The largest on the left measures 3 cm in maximal dimension. Bladder: Pre-void bladder volume is 270 mL. Post-void residual is 87 mL. Pre-void images demonstrate no intraluminal masses or stones. On pre-void images, both ureteral jets are noted with color Doppler interrogation. (Of note, ureteral jets may not be detectable in up to 25% of cases due to insufficient differences in specific gravity between ureteral and bladder urine). Miscellaneous: No free pelvic fluid. IMPRESSION: 1. Bilateral renal calculi without evidence for hydronephrosis identified. If further evaluation is clinically indicated a noncontrast CT of the abdomen and pelvis may be of further clinical value. 2. Bilateral renal cysts. Dictated by: Fortunato Elam M.D. on 03/16/2023 at 16:05 Approved by: Fortunato Elam M.D. on 03/16/2023 at 16:11
== END ==
PROVIDERS: Family Provider Family Medicine; PCP Physician Assistant Medical; Referring Provider Physician Assistant Medical; Visit Provider Physician Assistant Medical
DX: N18.9 Chronic kidney disease, unspecified (principal); N28.1 Cyst of kidney, acquired; N20.0 Calculus of kidney
CPT/HCPCS: 76770

== ENCOUNTER → 2023-04-21 09:30 | Outpatient (CLI) | payer MEDICARE, OTHER, SELFPAY ==
[2022-08-18 08:37] VITALS: BMI 30.8
[2023-04-21 20:14] LABS: Add Manual Diff / Slide Review NO; Basophils Absolute Auto 100 /uL (0-100); Basophils Percent Auto 1.4 % (0-2); Eosinophils Absolute Auto 100 /uL (0-450); Eosinophils Percent Auto 2.1 % (2-4); Hematocrit 36.4 % (36-46); Hemoglobin 12.4 g/dL (12.0-16.0); Lymphocytes Absolute Auto 1100 /uL (1100-4500); Lymphocytes Percent Auto 21.2 % (25-40); Mean Corpuscular HGB Conc 34.2 % (30-36); Mean Corpuscular Hemoglobin 31.3 PG (26-34); Mean Corpuscular Volume 91.6 fL (80-100); Monocytes Absolute Auto 500 /uL (0-900); Monocytes Percent Auto 10.6 % (3-14); Neutrophils Absolute Auto 3200 /uL (1500-7000); Neutrophils Percent Auto 64.7 % (50-75); Platelet Count 196 X10^3/uL (150-400); Red Blood Cell Count 3.97 X10^6/uL (4.0-5.2); Red Cell Distribution Width 12.7 % (11.6-14.8)
[2023-04-21 20:19] LABS: Blood Urea Nitrogen 35 mg/dL (7-17); Calcium 10.8 mg/dL (8.4-10.2); Carbon Dioxide 28 mmol/L (22-32); Chloride 100 mmol/L (98-107); Cholesterol 148 mg/dL (140-199); Estimated Glomerular Filt Rate 43 mL/min (>60); Glucose 97 mg/dL (80-110); HDL Cholesterol 61 mg/dL (40-60); HEMOLYSIS < 15 (0-50); LDL Cholesterol Calculated 68 mg/dL (<100); Potassium 4.5 mmol/L (3.4-5.1); Sodium 136 mmol/L (137-145); Triglycerides 93 mg/dL (35-150)
[2023-04-21 22:14] LABS: Free T4, Direct Thyroxine 1.38 ng/dL (0.78-2.19)
== END ==
PROVIDERS: Family Provider Family Medicine; PCP Family Medicine; Visit Provider Family Medicine
DX: E05.90 Thyrotoxicosis, unspecified without thyrotoxic crisis or storm (principal); E78.2 Mixed hyperlipidemia; N18.9 Chronic kidney disease, unspecified; N18.30 Chronic kidney disease, stage 3 unspecified
CPT/HCPCS: 80048; 80061; 84439; 84443; 85025

== ENCOUNTER → 2023-06-10 11:56 | Outpatient (CLI) | payer MEDICARE, OTHER, SELFPAY ==
[2022-08-18 08:37] VITALS: BMI 30.8
[2023-06-10 21:37] LABS: BUN Creatinine Ratio 36.3 (6-22); Blood Urea Nitrogen 37 mg/dL (7-17); Calcium 10.1 mg/dL (8.4-10.2); Carbon Dioxide 26 mmol/L (22-32); Chloride 103 mmol/L (98-107); Estimated Glomerular Filt Rate 54 mL/min (>60); Glucose 83 mg/dL (80-110); HEMOLYSIS < 15 (0-50); Potassium 4.2 mmol/L (3.4-5.1); Sodium 137 mmol/L (137-145)
[2023-06-10 21:54] LABS: Vitamin D 25 Hydroxy (D3) 45.6 ng/mL (30.0-100.0)
[2023-06-10 23:22] LABS: TSH w/ Reflex to FT4 0.08 uIU/mL (0.47-4.68)
[2023-06-11 00:22] LABS: Free T4, Direct Thyroxine 1.18 ng/dL (0.78-2.19)
[2023-06-12 21:48] LABS: Anti Thyroglobulin Antibody <1.0 IU/mL (0.0-0.9); Thyroid Peroxidase Antibodies 23 IU/mL (0-34)
[2023-06-15 16:34] LABS: Albumin 3.7 g/dL (2.9-4.4); Alpha-1-Globulin 0.2 g/dL (0.0-0.4); Alpha-2-Globulin 0.7 g/dL (0.4-1.0); Gamma Globulin 1.3 g/dL (0.4-1.8); Protein, Total 6.7 g/dL (6.0-8.5)
[2023-06-17 07:13] LABS: Calcium 9.8 mg/dL (8.7-10.3); Parathyroid Hormone, Intact 44 pg/mL (15-65)
== END ==
PROVIDERS: Family Provider Family Medicine; PCP Family Medicine; Visit Provider Family Medicine
DX: E83.52 Hypercalcemia (principal); E03.9 Hypothyroidism, unspecified; E05.90 Thyrotoxicosis, unspecified without thyrotoxic crisis or storm
CPT/HCPCS: 80048; 82306; 82310; 83970; 84155; 84165; 84439; 84443; 86376; 86800

== ENCOUNTER → 2023-07-01 11:33 | Outpatient (CLI) | payer MEDICARE, OTHER, SELFPAY ==
[2022-08-18 08:37] VITALS: BMI 30.8
[2023-07-03 22:33] LABS: Anti Thyroglobulin Antibody <1.0 IU/mL (0.0-0.9); Thyroid Peroxidase Antibodies 19 IU/mL (0-34)
== END ==
PROVIDERS: Family Provider Family Medicine; PCP Family Medicine; Visit Provider Family Medicine
DX: E05.90 Thyrotoxicosis, unspecified without thyrotoxic crisis or storm (principal)
CPT/HCPCS: 86376; 86800

== ENCOUNTER → 2023-07-22 13:25 | Outpatient (CLI) | payer MEDICARE, OTHER, SELFPAY ==
[2023-07-09 10:01] VITALS: BMI 30.8
[2023-07-22 20:32] LABS: Free T3, Triiodothyronine Free 2.88 pg/mL (2.77-5.27); Free T4, Direct Thyroxine 1.35 ng/dL (0.78-2.19)
[2023-07-27 20:35] LABS: Thyroid Stimulating Immunoglob < 0.10 IU/L (0.00-0.55)
== END ==
PROVIDERS: Family Provider Family Medicine; PCP Family Medicine; Visit Provider Family Medicine
DX: E05.90 Thyrotoxicosis, unspecified without thyrotoxic crisis or storm (principal)
CPT/HCPCS: 84439; 84445; 84481

== ENCOUNTER → 2023-08-04 08:45 | Outpatient (CLI) | payer MEDICARE, OTHER, SELFPAY ==
[2023-07-09 10:01] VITALS: BMI 30.8
--- NOTE | 2023-08-04 08:46 | DI.NM.S_ITS ---
PROCEDURE: NM UPTAKE AND SCAN RADIOPHARMACEUTICAL: 380 ?Ci I-123 sodium iodide by mouth. INDICATIONS: Hyperthyroidism. TSH less than 0.1 TECHNIQUE: I-123 sodium iodide was administered orally. Anterior neck images were obtained, and iodine uptake by the thyroid gland calculated using flatwork washer's software. COMPARISON: None. FINDINGS: Morphology: The thyroid gland has normal morphology and uniform activity. No 'cold' or 'hot' thyroid nodules are identified. Uptake: 6 hour thyroid uptake is 11.2%; normal ranges are from 6-18%. 24 hour thyroid uptake is 28.3%; normal ranges are from 10-30%. IMPRESSION: 1. Uniform thyroid uptake. No hot thyroid nodules. 2. Normal 6-hour and 24-hour radioactive iodine uptake. Dictated by: Mat Amin M.D. on 08/05/2023 at 14:15 Approved by: Mat Amin M.D. on 08/05/2023 at 14:17
== END ==
PROVIDERS: Family Provider Family Medicine; PCP Family Medicine; Referring Provider Family Medicine; Visit Provider Family Medicine
DX: E05.90 Thyrotoxicosis, unspecified without thyrotoxic crisis or storm (principal)
CPT/HCPCS: 78014; A9516

== ENCOUNTER → 2024-01-25 09:13 | Outpatient (CLI) | payer MEDICARE, OTHER, SELFPAY ==
[2023-07-09 10:01] VITALS: BMI 30.8
== END ==
PROVIDERS: Family Provider Family Medicine; PCP Family Medicine; Visit Provider Physician Assistant Medical
DX: T14.8XXA Other injury of unspecified body region, initial encounter (principal); W50.3XXA Accidental bite by another person, initial encounter
CPT/HCPCS: 87070; 87075; 87205

== ENCOUNTER → 2024-03-23 12:43 | Outpatient (CLI) | payer MEDICARE, OTHER, SELFPAY ==
[2023-07-09 10:01] VITALS: BMI 30.8
== END ==
PROVIDERS: Family Provider Family Medicine; PCP Family Medicine; Visit Provider Physician Assistant Medical
DX: S81.819A Laceration without foreign body, unspecified lower leg, initial encounter (principal); S91.001A Unspecified open wound, right ankle, initial encounter
CPT/HCPCS: 87070; 87075; 87077; 87186; 87205

== ENCOUNTER 2024-03-30 14:05 | Emergency (ER) | payer MEDICARE, OTHER, SELFPAY ==
[2023-07-09 10:01] VITALS: BMI 30.8
[2024-03-30 14:08] VITALS: BP 151/67; PULSE 72; RESP 16; TEMP 36.6; O2SAT 99; BMI 27.8
--- NOTE | 2024-03-30 14:59 | ED_ITS ---
HPI - Recheck/Abnormal Lab/Rx <Ellen Serrato PA-C - Last Filed: 03/30/24 16:02> General Chief Complaint: Recheck/Abnormal Lab/Rx Stated Complaint: infection on r leg Time Seen by Provider: 03/30/24 14:59 Source: patient Mode of arrival: Wheelchair History of Present Illness HPI narrative: Ms. Ricardo is a very pleasant 84-year-old female with a past medical history of hypertension, hyperlipidemia, MS who presents to the emergency department with her friend/neighbor after being sent by her primary care office at [facility] for right lower leg wound concerns. 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 In the days following, she developed redness and pus draining from the wound. She had a wound culture obtained on 03/23/2024 and was started on antibiotics. The patient states that the 1st few different antibiotic she tried she could not keep down and was throwing them up. However she states that 2 and half days ago she was started on cefuroxime based on wound culture results, and she has been taking this antibiotic without issues. Both her and her friend/neighbor confirmed that the wound on her right lower leg is looking much more improved with decreased redness and decreased pus drainage. She has been applying daily wound dressings. She denies fevers, chills, nausea, vomiting, fatigue, leg swelling. Related Data Home Medications Medication Instructions Recorded Confirmed latanoprost 0.005 % eye drops 1 drp ophthalmic (eye) DAILY 06/16/19 03/27/24 losartan 25 mg tablet 25 mg PO DAILY 08/18/22 03/27/24 biotin 1,000 mcg chewable tablet 1,000 mcg PO DAILY 01/05/23 03/27/24 ipratropium bromide 42 mcg (0.06 2 spray intranasal TID 03/01/24 03/27/24 %) nasal spray Previous Rx's Medication Instructions Recorded epinephrine 0.3 mg/0.3 mL 0.3 mg (0.3 mL) IM ONCE #1 ea 11/04/20 injection, auto-injector ascorbic acid (vitamin C) 500 mg 500 mg PO DAILY #90 tabs 06/23/22 tablet ferrous sulfate 325 mg (65 mg 325 mg PO DAILY #90 tabs 06/23/22 iron) tablet aspirin 81 mg tablet,delayed 81 mg PO BID #1 tab 08/19/22 release diclofenac sodium 1 % topical gel 2 g topical QID #100 grams 06/17/23 lidocaine 5 % topical patch 1 patch topical DAILY #15 ea 02/04/24 (Lidoderm) triamcinolone acetonide 0.1 % See Rx Instructions topical DAILY 03/01/24 topical ointment #80 grams simvastatin 40 mg tablet 40 mg PO DAILY #90 tabs 03/20/24 cefuroxime axetil 500 mg tablet 500 mg PO BID #20 tabs 03/27/24 mupirocin 2 % topical ointment 1 applic topical TID #22 grams 03/27/24 Allergies Allergy/AdvReac Type Severity Reaction Status Date / Time Penicillins Allergy Intermediate Hives Verified 03/30/24 09:52 adhesive Allergy Unknown Rash Verified 03/30/24 09:52 Sulfa (Sulfonamide Allergy Unknown Hives Verified 03/30/24 09:52 Antibiotics) meperidine [From Demerol] AdvReac Severe Makes me Verified 03/30/24 09:52 like a crazy person morphine AdvReac Severe Vomiting Verified 03/30/24 09:52 doxycycline monohydrate AdvReac Mild Vomiting Uncoded 03/30/24 09:52 Review of Systems <Ellen Serrato PA-C - Last Filed: 03/30/24 16:02> Review of Systems ROS Unobtainable: All systems reviewed & are unremarkable except as noted in HPI and below Patient History <Ellen Serrato PA-C - Last Filed: 03/30/24 16:02> Medical History Retinal artery branch occlusion of right eye Aortic stenosis Osteoarthritis HLD (hyperlipidemia) Loss of smell Glaucoma BPPV (benign paroxysmal positional vertigo) Dizzy spells Multiple sclerosis Healthy adult Surgical History Hx of tonsillectomy History of hysterectomy Hx of bilateral cataract extraction Hx of hand surgery Hx of foot surgery History of total left knee replacement History of total right knee replacement History of total right hip replacement (2019) No pertinent past surgical history Social History household members: none Smoking Status: Former smoker alcohol intake: former Smoking Status: Former smoker alcohol intake frequency: holidays/special occasions only Substance Use Type: does not use Exam <Ellen Serrato PA-C - Last Filed: 03/30/24 16:02> Narrative Exam Narrative: GENERAL: 84 year old patient appears stated age. Well-developed patient, in no acute distress. HEAD: Atraumatic. Normocephalic. EYES: Extraocular motions intact. No scleral icterus. No injection or drainage. ENT: Nose without bleeding, purulent drainage. Throat without erythema, tonsilla r hypertrophy or exudate. Airway patent. NECK: Trachea midline. Cervical ROM intact. CARDIOVASCULAR: Regular rate and rhythm. RESPIRATORY: ?Nonlabored respirations. ?Speaking in clear, full sentences. ?Clear to auscultation. Breath sounds equal bilaterally. No wheezes, rales, or rhonchi. ? GASTROINTESTINAL: Abdomen soft, non-tender, nondistended. EXTREMITIES: Approximately 2 cm superficial wound on the lateral right lower extremity. Approximately 3 cm of surrounding erythema with no increased warmth. No purulent drainage. Right foot is neurovascularly intact, warm and well- perfused. No calf swelling or tenderness. No streaking erythema. No abnormalities on the other extremities. BACK: Nontender without deformity or crepitance. No flank tenderness. NEURO: AOx3. ?Clear speech. ?Moves all 4 extremities appropriately. Initial Vital Signs Initial Vital Signs: Vital Signs Temperature 97.8 F 03/30/24 14:08 Pulse Rate 72 03/30/24 14:08 Respiratory Rate 16 03/30/24 14:08 Blood Pressure 151/67 H 03/30/24 14:08 Pulse Oximetry 99 03/30/24 14:08 Oxygen Delivery Method Room Air 03/30/24 14:08 <Jade Obregon MD - Last Filed: 03/31/24 08:26> Initial Vital Signs Initial Vital Signs: Vital Signs Temperature 97.8 F 03/30/24 14:08 Pulse Rate 72 03/30/24 14:08 Respiratory Rate 16 03/30/24 14:08 Blood Pressure 151/67 H 03/30/24 14:08 Pulse Oximetry 99 03/30/24 14:08 Oxygen Delivery Method Room Air 03/30/24 14:08 Course <Ellen Serrato PA-C - Last Filed: 03/30/24 16:02> Consultations Consultation #1: Discussed case with our pharmacist on-call, Jalil. He reviewed wound culture result from 03/23/2024 with me and confirmed that the patient is on a susceptible antibiotic which is cefuroxime. Vital Signs Vital signs: Vital Signs - 8 hr 03/30/24 14:08 Temperature 97.8 F Pulse Rate 72 Respiratory Rate 16 Blood Pressure 151/67 H Pulse Oximetry 99 Oxygen Delivery Method Room Air <Jade Obregon MD - Last Filed: 03/31/24 08:26> Vital Signs Vital signs: Vital Signs - 8 hr 03/30/24 14:08 Temperature 97.8 F Pulse Rate 72 Respiratory Rate 16 Blood Pressure 151/67 H Pulse Oximetry 99 Oxygen Delivery Method Room Air MDM - Recheck/Abnormal Lab/Rx <Ellen Serrato PA-C - Last Filed: 03/30/24 16:02> Medical Records Attestation: I reviewed the patient's medical records. Medical records narrative: Reviewed note from [facility] from today and 03/28/24. Documents lateral right lower leg with approximate 1 cm ulceration that is moist, faint pink and mildly tender. Patient was seen in wound clinic. She was taking cefuroxime. [facility] Narrative Medical decision making narrative: 84-year-old female presents to the emergency department for right lower leg wound. Patient is on day 3 of cefuroxime which is susceptible based on wound culture results obtained at her primary care doctor's office. Differential diagnosis includes but is not limited to cellulitis, abscess, nonhealing wound, peripheral vascular disease, etc. On exam the patient is in no acute distress, nontoxic appearing, afebrile and not tachycardic. She has a 2 cm wound on the right lateral lower extremity that appears to be healing well with a minimal surrounding erythema and no purulent drainage. Both her and her friend confirm this wound looks much better than it did when it 1st developed. I called and confirmed with our pharmacist that she has on a susceptible antibiotic based on wound culture results. After shared decision-making with the patient, the patient was very reassured that she is on the correct antibiotic and she does not want any additional testing. Patient's vital signs are appropriate and she looks well, I do not believe any lab work or further workup is necessary. I had a very extensive discussion with the patient about the importance of completing the full course of antibiotics continuing to keep the wound clean, dry, covered. We discussed reasons to return to the ER for including but not limited to fevers, increased redness, increased drainage, feeling unwell, throwing up etc.. Both the patient and her friend verbalized understanding of all information and are agreeable with the plan. She is stable for discharge. Discharge Plan Departure Patient Disposition: Home Clinical Impression: Infection of wound without complication, Visual impairment Instructions: DI for Cellulitis -- Adult Activity Restrictions/Additional Instructions: Today you were evaluated for a right lower leg wound. It appears that your wound is healing well and you were on the correct antibiotic based on your wound culture results. Please complete the full course of antibiotics and continue keeping the wound clean, dry, covered with a dressing. Return to the emergency room if you develop fevers, chills, increased redness or drainage of the wound, or any other concerns. Otherwise please follow up with your primary care doctor within the next 2-3 days. IF YOU DEVELOP ANY NEW OR WORSENING SYMPTOMS, RETURN TO THE ER! Please read the attached instructions, they highlight more specific treatments a nd interventions for you at home. Thank you for letting me participate in your care, Ellen Serrato PA-C Prescriptions: No Action ascorbic acid (vitamin C) 500 mg tablet 500 mg PO DAILY Qty: 90 0RF Rx Instructions: Take with iron ferrous sulfate 325 mg (65 mg iron) tablet 325 mg PO DAILY Qty: 90 0RF Rx Instructions: Take with Vitamin C simvastatin 40 mg tablet 40 mg PO DAILY Qty: 90 0RF cefuroxime axetil 500 mg tablet 500 mg PO BID Qty: 20 0RF mupirocin 2 % ointment 1 applic topical TID Qty: 22 0RF latanoprost 0.005 % drops 1 drp ophthalmic (eye) DAILY losartan 25 mg Tablet 25 mg PO DAILY aspirin 81 mg Tablet,Delayed Release (Dr/Ec) 81 mg PO BID Qty: 1 0RF Rx Instructions: One tab twice a day for 6 weeks after surgery biotin 1,000 mcg tablet,chewable 1,000 mcg PO DAILY Patient Comments: dose unknown diclofenac sodium 1 % gel 2 g topical QID Qty: 100 5RF Rx Instructions: apply to single elbow, wrist or hand; for hand includes palm/fingers/back of hand lidocaine [Lidoderm] 5 % adhesive patch,medicated 1 patch topical DAILY Qty: 15 0RF Rx Instructions: leave on most painful area for up to 12 hrs epinephrine 0.3 mg/0.3 mL auto-injector 0.3 mg IM ONCE Qty: 1 0RF Rx Instructions: as a single dose ipratropium bromide 42 mcg (0.06 %) spray,non-aerosol 2 spray intranasal TID triamcinolone acetonide 0.1 % ointment See Rx Instructions topical DAILY Qty: 80 0RF Rx Instructions: topically daily; Apply to the inflamed area of the buttock daily as needed for irritation. Rub in well Referrals: Keith Garcia MD [Primary Care Provider] - Stand Alone Forms: Patient Portal/API/Survey ED Sign-out <Jade Obregon MD - Last Filed: 03/31/24 08:26> Cosign ED Attending Cosignature Attestation: I was immediately available in the department for consultation throughout this patient's visit. Jade Obregon MD
[2024-03-30 16:01] VITALS: BP 148/66; PULSE 69; RESP 17; O2SAT 98
== END 2024-03-30 16:03 | disposition home or self-care (01) ==
PROVIDERS: Emergency Provider Physician Assistant; Family Provider Family Medicine; PCP Family Medicine
DX: L08.9 Local infection of the skin and subcutaneous tissue, unspecified (principal); H54.7 Unspecified visual loss
CPT/HCPCS: 99281

== ENCOUNTER → 2024-04-12 09:51 | Outpatient (CLI) | payer MEDICARE, OTHER, SELFPAY ==
[2023-07-09 10:01] VITALS: BMI 30.8
[2024-04-12 19:45] LABS: Add Manual Diff / Slide Review NO; Basophils Absolute Auto 0 /uL (0-100); Basophils Percent Auto 1.1 % (0-2); Eosinophils Absolute Auto 200 /uL (0-450); Eosinophils Percent Auto 3.4 % (2-4); Hematocrit 35.7 % (36-46); Hemoglobin 11.8 g/dL (12.0-16.0); Lymphocytes Absolute Auto 1100 /uL (1100-4500); Lymphocytes Percent Auto 23.8 % (25-40); Mean Corpuscular Hemoglobin 30.7 PG (26-34); Monocytes Absolute Auto 500 /uL (0-900); Monocytes Percent Auto 11.1 % (3-14); Neutrophils Absolute Auto 2700 /uL (1500-7000); Neutrophils Percent Auto 60.6 % (50-75); Platelet Count 211 X10^3/uL (150-400); Red Blood Cell Count 3.85 X10^6/uL (4.0-5.2); Red Cell Distribution Width 12.6 % (11.6-14.8); White Blood Cell Count 4.5 X10^3/uL (4.5-11.0)
[2024-04-12 20:03] LABS: BUN Creatinine Ratio 29.6 (6-22); Blood Urea Nitrogen 37 mg/dL (7-17); Calcium 10.3 mg/dL (8.4-10.2); Carbon Dioxide 31 mmol/L (22-32); Chloride 106 mmol/L (98-107); Cholesterol 141 mg/dL (140-199); Estimated Glomerular Filt Rate 42 mL/min (>60); Glucose 97 mg/dL (80-110); HDL Cholesterol 72 mg/dL (40-60); HEMOLYSIS < 15 (0-50); LDL Cholesterol Calculated 60 mg/dL (<100); Potassium 4.4 mmol/L (3.4-5.1); Sodium 138 mmol/L (137-145); Triglycerides 47 mg/dL (35-150)
[2024-04-12 20:30] LABS: TSH w/ Reflex to FT4 0.07 uIU/mL (0.47-4.68)
[2024-04-12 20:57] LABS: Free T4, Direct Thyroxine 1.19 ng/dL (0.78-2.19)
== END ==
PROVIDERS: Family Provider Family Medicine; PCP Family Medicine; Visit Provider Family Medicine
DX: I65.29 Occlusion and stenosis of unspecified carotid artery (principal); E03.9 Hypothyroidism, unspecified; N18.31 Chronic kidney disease, stage 3a; E83.52 Hypercalcemia; E05.90 Thyrotoxicosis, unspecified without thyrotoxic crisis or storm; E78.2 Mixed hyperlipidemia; I10 Essential (primary) hypertension; H34.239 Retinal artery branch occlusion, unspecified eye
CPT/HCPCS: 80048; 80061; 84439; 84443; 85025

== ENCOUNTER → 2024-06-27 11:22 | Outpatient (CLI) | payer MEDICARE, OTHER, SELFPAY ==
[2023-07-09 10:01] VITALS: BMI 30.8
[2024-06-27 19:13] LABS: BUN Creatinine Ratio 23.3 (6-22); Blood Urea Nitrogen 27 mg/dL (7-17); Calcium 9.7 mg/dL (8.4-10.2); Carbon Dioxide 28 mmol/L (22-32); Chloride 102 mmol/L (98-107); Estimated Glomerular Filt Rate 46 mL/min (>60); Glucose 92 mg/dL (80-110); HEMOLYSIS < 15 (0-50); Potassium 4.2 mmol/L (3.4-5.1); Sodium 136 mmol/L (137-145)
[2024-06-27 19:45] LABS: TSH w/ Reflex to FT4 1.48 uIU/mL (0.47-4.68)
== END ==
PROVIDERS: Family Provider Family Medicine; PCP Family Medicine; Visit Provider Family Medicine
DX: E05.90 Thyrotoxicosis, unspecified without thyrotoxic crisis or storm (principal); N18.31 Chronic kidney disease, stage 3a
CPT/HCPCS: 80048; 84443

== ENCOUNTER → 2024-07-27 11:54 | Outpatient (CLI) | payer MEDICARE, OTHER, SELFPAY ==
[2024-07-24 10:26] VITALS: BMI 30.8
[2024-07-27 18:50] LABS: Add Manual Diff / Slide Review NO; Basophils Absolute Auto 100 /uL (0-100); Basophils Percent Auto 0.8 % (0-2); Eosinophils Absolute Auto 200 /uL (0-450); Eosinophils Percent Auto 3.2 % (2-4); Hematocrit 33.9 % (36-46); Hemoglobin 11.4 g/dL (12.0-16.0); Lymphocytes Absolute Auto 1400 /uL (1100-4500); Lymphocytes Percent Auto 21.2 % (25-40); Mean Corpuscular HGB Conc 33.6 % (30-36); Mean Corpuscular Hemoglobin 30.7 PG (26-34); Mean Corpuscular Volume 91.3 fL (80-100); Monocytes Absolute Auto 500 /uL (0-900); Monocytes Percent Auto 8.3 % (3-14); Neutrophils Absolute Auto 4300 /uL (1500-7000); Neutrophils Percent Auto 66.5 % (50-75); Platelet Count 199 X10^3/uL (150-400); Red Blood Cell Count 3.72 X10^6/uL (4.0-5.2); Red Cell Distribution Width 12.9 % (11.6-14.8); White Blood Cell Count 6.5 X10^3/uL (4.5-11.0)
[2024-07-27 18:59] LABS: Alanine Aminotransferase 16 IU/L (<35); Albumin Globulin Ratio 1.4 (1.0-2.8); Alkaline Phosphatase 67 U/L (38-126); Amylase 56 U/L (30-110); Aspartate Aminotransferase 32 IU/L (14-36); BUN Creatinine Ratio 25.9 (6-22); Bilirubin Total 0.5 mg/dL (0.2-1.3); Blood Urea Nitrogen 29 mg/dL (7-17); C-Reactive Protein Quant < 0.5 mg/dL (<1.0); Calcium 9.9 mg/dL (8.4-10.2); Carbon Dioxide 25 mmol/L (22-32); Chloride 105 mmol/L (98-107); Estimated Glomerular Filt Rate 48 mL/min (>60); Globulin 2.9 g/dL (1.7-4.1); Glucose 95 mg/dL (80-110); HEMOLYSIS < 15 (0-50); Lipase 147 U/L (23-300); Potassium 4.4 mmol/L (3.4-5.1); Sodium 138 mmol/L (137-145); Total Protein 6.9 g/dL (6.3-8.2)
[2024-07-27 19:21] LABS: Erythrocyte Sedimentation Rate 29 MM/HR (0-20)
== END ==
PROVIDERS: Family Provider Family Medicine; PCP Family Medicine; Visit Provider Family Medicine
DX: E83.52 Hypercalcemia (principal); E05.90 Thyrotoxicosis, unspecified without thyrotoxic crisis or storm; R10.13 Epigastric pain; N18.31 Chronic kidney disease, stage 3a; R74.8 Abnormal levels of other serum enzymes; I12.9 Hypertensive chronic kidney disease with stage 1 through stage 4 chronic kidney disease, or unspecified chronic kidney disease
CPT/HCPCS: 80053; 82150; 83690; 85025; 85651; 86140